=== PATIENT | male | born 1945 | race Caucasian/White ===

== ENCOUNTER 2017-09-01 11:12 | Emergency (ER) | payer MEDICARE ==
[2017-09-01] MEDS ORDERED: IBUPROFEN 600 MG TAB PO STA (11:53)
--- NOTE | 2017-09-01 12:40 | XR ---
EXAMINATION TYPE: XR foot limited LT , 2 VIEWS DATE OF EXAM ORDERED: 09/01/2017 HISTORY: Pain. COMPARISON: None. FINDINGS: There are mild degenerative changes in the left first MTP joint. No fracture or dislocatio n is seen. There is a hammertoe deformity of the left second digit. IMPRESSION: 1. NO ACUTE OSSEOUS LESION. 2. MILD DEGENERATIVE CHANGE.
--- NOTE | 2017-09-01 12:58 | ED ---
General Adult HPI - General Chief complaint: Extremity Problem,Nontraumatic Stated complaint: LEFT HEEL PAIN Time Seen by Provider: 09/01/17 11:44 Source: patient, family, RN notes reviewed Mode of arrival: wheelchair Limitations: no limitations - History of Present Illness Initial comments: Patient 71-year-old male presenting today with a chief complaint of some pain to the back of the left heel. Patient denies any injury or trauma. States woke up the morning and noticed that it was tender to touch. States is hurts when he tries she was on and ambulate. Patient doesn't that it's worse with dorsiflexion. He denies any other complaints or associated symptoms. Patient denies any recent fever, chills, shortness of breath, chest pain, back pain, abdominal pain, nausea or vomiting, numbness or tingling, headaches or visual changes, or any other complaints. - Related Data Home Medications Medication Instructions Recorded Confirmed Cholecalciferol [Vitamin D3] 1,000 unit PO DAILY 09/01/17 09/01/17 Lisinopril-Hctz 20-25 mg 1 tab PO DAILY 09/01/17 09/01/17 [Zestoretic 20-25] Simvastatin [Zocor] 40 mg PO DAILY 09/01/17 09/01/17 Previous Rx's Medication Instructions Recorded predniSONE 20 mg PO BID 5 Days tab 09/01/17 Allergies Allergy/AdvReac Type Severity Reaction Status Date / Time No Known Allergies Allergy Verified 09/01/17 11:58 Review of Systems ROS Statement: Those systems with pertinent positive or pertinent negative responses have been documented in the HPI. ROS Other: All systems not noted in ROS Statement are negative. Past Medical History Past Medical History: Hyperlipidemia, Hypertension History of Any Multi-Drug Resistant Organisms: None Reported Past Surgical History: No Surgical Hx Reported Past Psychological History: No Psychological Hx Reported Smoking Status: Never smoker Past Alcohol Use History: None Reported Past Drug Use History: Marijuana General Exam - General Exam Comments Initial Comments: General: The patient is awake and alert, in no distress, and does not appear acutely ill. Neck: The neck is supple, there is no tenderness or JVD. Cardiovascular: There is a regular rate and rhythm. No murmur, rub or gallop is appreciated. Respiratory: Lungs are clear to auscultation, respirations are non-labored, breath sounds are equal. No wheezes, stridor, rales, or rhonchi. Musculoskeletal: Patient has full range motion. Sensations are intact. Pulses are equal bilaterally 2+. Patient does have tenderness to the posterior heel. There is some local redness. Negative Mascorro's test. Worse with dorsiflexion. Neurological: A&O x 3. CN II-XII intact, There are no obvious motor or sensory deficits. Coordination appears grossly intact. Speech is normal. Skin: Skin is warm and dry and no rashes or lesions are noted. Psychiatric: Normal mood and affect. Limitations: no limitations Course Vital Signs 09/01/17 11:29 Temperature 97.4 F L Pulse Rate 62 Respiratory 20 Rate Blood Pressure 131/74 O2 Sat by Pulse 95 Oximetry Medical Decision Making - Medical Decision Making Patient's x-rays negative. His findings are consistent with a information of the tendon. He'll be continued on steroids for inflammation. Patient does admit to improvement after ibuprofen here the emergency room. Is advised follow -up family doctor return if any symptoms increase worsen. Disposition Clinical Impression: Tendinitis of ankle or foot Disposition: HOME SELF-CARE Condition: Good Instructions: Tendinitis (ED) Additional Instructions: Please use medication as discussed. Please follow-up with family doctor in the next 2 days of symptoms have not improved. Please return to emergency room if the symptoms increase or worsen or for any other concerns. Prescriptions: predniSONE 20 mg PO BID 5 Days tab Referrals: None,Stated [Primary Care Provider] - 1-2 days Amanda White MD [STAFF PHYSICIAN] - 1-2 days Time of Disposition: 12:56
[2017-09-01 13:09] VITALS: BP 132/84; PULSE 64; RESP 18; TEMP 97.7
== END 2017-09-01 13:08 | disposition home or self-care (01) ==
LOC: EC 11:12
DX: M77.9 Enthesopathy, unspecified (principal); E78.5 Hyperlipidemia, unspecified; I10 Essential (primary) hypertension; Z79.899 Other long term (current) drug therapy
CPT/HCPCS: 99283

== ENCOUNTER → 2017-09-23 | Outpatient (CLI) | payer MEDICARE ==
[2017-09-23 09:49] LABS: ALT 25 U/L (21-72); AST 18 U/L (17-59); Albumin 3.9 g/dL (3.5-5.0); Alkaline Phosphatase 52 U/L (38-126); Anion Gap 12 mmol/L; Blood Urea Nitrogen 18 mg/dL (9-20); Calcium 9.3 mg/dL (8.4-10.2); Carbon Dioxide 28 mmol/L (22-30); Chloride 104 mmol/L (98-107); Cholesterol 157 mg/dL (<200); Glucose 109 mg/dL (74-99); HDL Cholesterol 36 mg/dL (40-60); LDL Cholesterol,Calculated 87 mg/dL (0-99); Potassium 4.2 mmol/L (3.5-5.1); Sodium 144 mmol/L (137-145); Total Bilirubin 0.7 mg/dL (0.2-1.3); Total Protein 6.5 g/dL (6.3-8.2); Triglycerides 172 mg/dL (<150)
[2017-09-23 09:51] LABS: HCT 47.8 % (39.0-53.0); HGB 15.5 gm/dL (13.0-17.5); MCH 28.2 pg (25.0-35.0); MCHC 32.5 g/dL (31.0-37.0); MCV 86.9 fL (80.0-100.0); Mean Platelet Volume 6.9; Platelet Count 242 k/uL (150-450); RDW 13.3 % (11.5-15.5); WBC 6.8 k/uL (3.8-10.6)
[2017-09-23 10:19] LABS: Appearance,Urine Clear (Clear); Bilirubin,Urine Negative (Negative); Blood,Urine Negative (Negative); Color,Urine Yellow; Glucose,Urine (UA) Negative (Negative); Ketones,Urine Negative (Negative); Leukocyte Esterase,Urine Negative (Negative); Nitrite,Urine Negative (Negative); PH, Urine 6.5 (5.0-8.0); Prostate Specific Antigen 0.62 ng/mL (0.00-4.00); Protein,Urine Negative (Negative); Specific Gravity,Urine 1.016 (1.001-1.035); Urobilinogen,Urine <2.0 mg/dL (<2.0)
[2017-09-23 17:49] LABS: Hemoglobin A1C 5.9 % (4.0-6.0)
== END | disposition home or self-care (01) ==
LOC: LABWHC1 09:09
PROVIDERS: ATTEND Internal Medicine Cardiovascular Disease
DX: E78.5 Hyperlipidemia, unspecified (principal); I10 Essential (primary) hypertension; E88.81 Metabolic syndrome and other insulin resistance; E55.9 Vitamin D deficiency, unspecified; Z12.5 Encounter for screening for malignant neoplasm of prostate
CPT/HCPCS: 36415; 80053; 80061; 81003; 83036; 84153; 84443; 85027

== ENCOUNTER → 2019-01-09 | Outpatient (CLI) | payer MEDICARE ==
[2019-01-09 10:11] LABS: Appearance,Urine Clear (Clear); Bilirubin,Urine Negative (Negative); Blood,Urine Negative (Negative); Color,Urine Yellow; Glucose,Urine (UA) Negative (Negative); Ketones,Urine Negative (Negative); Leukocyte Esterase,Urine Negative (Negative); Nitrite,Urine Negative (Negative); Protein,Urine Negative (Negative); Specific Gravity,Urine 1.021 (1.001-1.035); Urobilinogen,Urine <2.0 mg/dL (<2.0)
[2019-01-09 10:17] LABS: HCT 48.4 % (39.0-53.0); HGB 15.7 gm/dL (13.0-17.5); MCH 28.7 pg (25.0-35.0); MCHC 32.4 g/dL (31.0-37.0); MCV 88.6 fL (80.0-100.0); Mean Platelet Volume 6.8; Platelet Count 246 k/uL (150-450); RBC 5.47 m/uL (4.30-5.90); RDW 13.5 % (11.5-15.5); WBC 7.6 k/uL (3.8-10.6)
[2019-01-09 17:13] LABS: African American GFR (CKD) 86.2 (60.0-200.0); Albumin 4.3 g/dL (3.80-4.90); Albumin/Globulin Ratio 2.53 (1.60-3.17); Calcium 9.5 mg/dL (8.7-10.3); Globulin 1.7 g/dL (1.6-3.3); LDL Cholesterol,Calculated 74.4 mg/dL (0.0-131.0); Potassium 4.2 mmol/L (3.5-5.5); Total Bilirubin 0.7 mg/dL (0.2-1.2); VLDL Calculation 29.6 mg/dL (5.00-40.00)
[2019-01-09 18:47] LABS: Hemoglobin A1C 6.1 % (4.0-6.0)
== END | disposition home or self-care (01) ==
LOC: LABWHC1 09:09
PROVIDERS: ATTEND Internal Medicine Cardiovascular Disease
DX: I10 Essential (primary) hypertension (principal); E03.9 Hypothyroidism, unspecified; R73.9 Hyperglycemia, unspecified; N40.0 Benign prostatic hyperplasia without lower urinary tract symptoms
CPT/HCPCS: 36415; 80053; 80061; 81003; 83036; 84153; 84443; 85027

== ENCOUNTER → 2020-01-20 | Outpatient (CLI) | payer MEDICARE ==
[2020-01-20 12:24] LABS: HCT 48.9 % (39.0-53.0); HGB 15.5 gm/dL (13.0-17.5); MCH 28.8 pg (25.0-35.0); MCHC 31.8 g/dL (31.0-37.0); MCV 90.5 fL (80.0-100.0); Mean Platelet Volume 7.2; Platelet Count 251 k/uL (150-450); RDW 13.3 % (11.5-15.5); WBC 8.8 k/uL (3.8-10.6)
[2020-01-20 13:32] LABS: Appearance,Urine Clear (Clear); Bilirubin,Urine Negative (Negative); Blood,Urine Negative (Negative); Color,Urine Light Yellow; Glucose,Urine (UA) Negative (Negative); Ketones,Urine Negative (Negative); Leukocyte Esterase,Urine Negative (Negative); Nitrite,Urine Negative (Negative); PH, Urine 6.5 (5.0-8.0); Protein,Urine Negative (Negative); Specific Gravity,Urine 1.017 (1.001-1.035); Urobilinogen,Urine <2.0 mg/dL (<2.0)
[2020-01-20 19:53] LABS: African American GFR (CKD) 85.6 (60.0-200.0); Albumin 4.3 g/dL (3.80-4.90); Albumin/Globulin Ratio 1.95 (1.60-3.17); Anion Gap 9.8 mmol/L (4.00-12.00); Calcium 9.9 mg/dL (8.7-10.3); Carbon Dioxide 29.2 mmol/L (21.6-31.8); Chol/HDL Ratio 3.86; Globulin 2.2 g/dL (1.6-3.3); Non-African American GFR(CKD) 73.8 (60.0-200.0); Potassium 4.5 mmol/L (3.5-5.5); Total Bilirubin 0.9 mg/dL (0.2-1.2); Total Protein 6.5 g/dL (6.2-8.2)
[2020-01-20 20:09] LABS: PSA Annual Screen 0.4 ng/mL (0.0-4.0)
== END | disposition home or self-care (01) ==
LOC: LABWHC1 10:23
PROVIDERS: ATTEND Internal Medicine Cardiovascular Disease
DX: Z00.00 Encounter for general adult medical examination without abnormal findings (principal); Z12.5 Encounter for screening for malignant neoplasm of prostate; I10 Essential (primary) hypertension; E78.5 Hyperlipidemia, unspecified; E66.9 Obesity, unspecified; E55.9 Vitamin D deficiency, unspecified
CPT/HCPCS: 80061; 80053; 84443; 85027; 81003; 36415; G0103

== ENCOUNTER → 2020-03-25 | Outpatient (CLI) | payer MEDICARE | END | disposition home or self-care (01) | LOC: LABWHC1 14:04 | PROVIDERS: ATTEND Family Medicine | DX: R53.83 Other fatigue (principal) | CPT/HCPCS: U0003; C9803 ==

== ENCOUNTER → 2022-03-08 | Outpatient (CLI) | payer MEDICARE ==
--- NOTE | 2022-03-08 14:10 | US ---
EXAMINATION TYPE: US axilla LT DATE OF EXAM: 03/08/2022 COMPARISON: NONE CLINICAL HISTORY: 76-year-old male N63.32 LUMP IN AXILLARY TAIL OF THE LEFT BREAST. Palpable lump lef t axilla x 1 year TECHNIQUE: Targeted ultrasound examination left axilla at the patient's palpable site. FINDINGS: Building Inspector notes: Left axilla: 1.7 x 1.1 x 2.6cm lymph node seen at patient's palpable area. Uniform , smooth and nonthickened cortex. IMPRESSION: Borderline to mildly enlarged lymph node measuring 1.7 cm short axis at the patient's left axillary p alpable site. This shows no abnormal cortical thickening. Likely reactive/post inflammatory etiology. Recommend clinical follow-up. A 2-3 month follow-up ultrasound can also be performed.
== END | disposition home or self-care (01) ==
LOC: RADUSWWP 10:06
PROVIDERS: ATTEND Family Medicine
DX: N63.32 Unspecified lump in axillary tail of the left breast (principal)

== ENCOUNTER 2023-09-02 14:49 | Inpatient (IN) | payer MEDICARE ==
--- NOTE | 2023-09-02 15:11 | ED ---
General Adult HPI - General Chief complaint: Neuro Symptoms/Deficit Stated complaint: Dizziness Source: patient Mode of arrival: ambulatory Limitations: no limitations - History of Present Illness Initial comments: 77-year-old male who presents emergency department from his eye doctor's office. Patient reports that he had sudden onset of visual disturbance at 730 last night. He felt like he lost vision completely in his left eye and had some fuzziness to his right eye. States that over the course of the day his eyesight has improved but he continues to have inability to see the periphery of the left side. He went to see his eye doctor today. Studies were performed and it was indicated to the patient that they were concerned he had a stroke. He sent the patient into the hospital for further evaluation here. He continues to have hemianopsia. NIH is 2. No history of stroke. Denies any headaches. No facial droop. No speech changes. Denies any weakness in his extremities. No other alleviating, precipitating or modifying factors - Related Data Home Medications Medication Instructions Recorded Confirmed Calcium Carbonate [Calcium] 600 mg PO DAILY 09/02/23 09/02/23 Cholecalciferol [Vitamin D3 (25 25 mcg PO DAILY 09/02/23 09/02/23 Mcg = 1000 Iu)] Previous Rx's Medication Instructions Recorded Aspirin 325 mg PO DAILY #30 tab 09/04/23 Atorvastatin [Lipitor] 40 mg PO DAILY #30 tab 09/04/23 Clopidogrel [Plavix] 75 mg PO DAILY #21 tab 09/04/23 Losartan [Cozaar] 25 mg PO DAILY #30 tab 09/04/23 Metoprolol Tartrate [Lopressor] 12.5 mg PO BID #60 tab 09/04/23 Allergies Allergy/AdvReac Type Severity Reaction Status Date / Time No Known Allergies Allergy Verified 09/02/23 15:31 Review of Systems ROS Statement: Those systems with pertinent positive or pertinent negative responses have been documented in the HPI. ROS Other: All systems not noted in ROS Statement are negative. Past Medical History Past Medical History: Hyperlipidemia, Hypertension History of Any Multi-Drug Resistant Organisms: None Reported Past Surgical History: No Surgical Hx Reported Past Psychological History: No Psychological Hx Reported Smoking Status: Never smoker Past Alcohol Use History: None Reported Past Drug Use History: Marijuana General Exam Limitations: no limitations General appearance: alert, in no apparent distress Head exam: Present: atraumatic, normocephalic, normal inspection Eye exam: Present: normal appearance, PERRL, EOMI. Absent: scleral icterus, conjunctival injection, periorbital swelling ENT exam: Present: normal exam, mucous membranes moist Neck exam: Present: normal inspection. Absent: tenderness, meningismus, lymphadenopathy Respiratory exam: Present: normal lung sounds bilaterally. Absent: respiratory distress, wheezes, rales, rhonchi, stridor Cardiovascular Exam: Present: regular rate, normal rhythm, normal heart sounds. Absent: systolic murmur, diastolic murmur, rubs, gallop, clicks GI/Abdominal exam: Present: soft, normal bowel sounds. Absent: distended, tenderness, guarding, rebound, rigid Extremities exam: Present: normal inspection, full ROM, normal capillary refill. Absent: tenderness, pedal edema, joint swelling, calf tenderness Back exam: Present: normal inspection Neurological exam: Present: alert, oriented X3, other (patient has left sided hemianopsia with loss of left sided vision) Psychiatric exam: Present: normal affect, normal mood Skin exam: Present: warm, dry, intact, normal color. Absent: rash Course Vital Signs 09/02/23 09/02/23 09/02/23 14:50 15:13 15:30 Temperature 98.6 F Pulse Rate 34 L 58 L Respiratory 20 22 17 Rate Blood Pressure 174/84 168/83 143/70 O2 Sat by Pulse 99 95 95 Oximetry 09/02/23 09/02/23 09/02/23 15:40 15:41 15:56 Temperature Pulse Rate 55 L 59 L Respiratory 19 19 Rate Blood Pressure 152/91 151/82 147/82 O2 Sat by Pulse 98 98 Oximetry 09/02/23 09/02/23 09/02/23 16:00 16:10 16:11 Temperature Pulse Rate 52 L 53 L 57 L Respiratory 22 19 18 Rate Blood Pressure 151/82 147/82 141/81 O2 Sat by Pulse 97 97 97 Oximetry 09/02/23 09/02/23 09/02/23 16:26 16:30 16:40 Temperature Pulse Rate 60 56 L 51 L Respiratory 19 19 13 Rate Blood Pressure 145/73 141/81 145/73 O2 Sat by Pulse 98 97 96 Oximetry 09/02/23 09/02/23 09/02/23 16:41 16:56 17:00 Temperature Pulse Rate 54 L 61 62 Respiratory 18 17 17 Rate Blood Pressure 150/91 157/91 150/91 O2 Sat by Pulse 97 97 97 Oximetry 09/02/23 09/02/23 09/02/23 17:12 18:00 20:00 Temperature 97.0 F L Pulse Rate 70 54 L 59 L Respiratory 17 14 18 Rate Blood Pressure 145/81 149/95 O2 Sat by Pulse 99 98 97 Oximetry 09/02/23 09/02/23 09/02/23 20:26 20:56 21:26 Temperature Pulse Rate 53 L 53 L 55 L Respiratory 16 18 18 Rate Blood Pressure 144/81 146/96 124/82 O2 Sat by Pulse 97 97 97 Oximetry 09/02/23 09/02/23 09/02/23 21:56 22:08 22:26 Temperature Pulse Rate 56 L 58 L 71 Respiratory 19 18 18 Rate Blood Pressure 95/66 118/74 118/74 O2 Sat by Pulse 97 95 97 Oximetry 09/02/23 09/02/23 09/03/23 22:56 23:56 00:48 Temperature Pulse Rate 54 L 60 52 L Respiratory 18 16 16 Rate Blood Pressure 121/78 112/70 104/74 O2 Sat by Pulse 98 94 L 91 L Oximetry 09/03/23 09/03/23 09/03/23 01:56 02:56 03:56 Temperature Pulse Rate 55 L 52 L 51 L Respiratory 18 18 16 Rate Blood Pressure 137/74 118/75 108/79 O2 Sat by Pulse 95 92 L 93 L Oximetry 09/03/23 09/03/23 09/03/23 04:56 08:00 11:10 Temperature Pulse Rate 59 L 59 L 61 Respiratory 16 18 18 Rate Blood Pressure 93/70 125/89 143/95 O2 Sat by Pulse 92 L 95 96 Oximetry 09/03/23 09/03/23 09/03/23 11:56 12:56 13:56 Temperature Pulse Rate 53 L 56 L 56 L Respiratory 14 14 16 Rate Blood Pressure 141/71 145/81 141/86 O2 Sat by Pulse 97 96 95 Oximetry 09/03/23 09/03/23 09/03/23 14:56 16:36 18:20 Temperature Pulse Rate 73 56 L 54 L Respiratory 16 14 14 Rate Blood Pressure 151/82 122/80 134/95 O2 Sat by Pulse 95 96 95 Oximetry 09/03/23 09/03/23 18:56 21:23 Temperature Pulse Rate 54 L 64 Respiratory 14 19 Rate Blood Pressure 148/88 116/81 O2 Sat by Pulse 95 96 Oximetry Medical Decision Making - Medical Decision Making Was pt. sent in by a medical professional or institution (, PA, SALES AGENT [employer], urgent care, hospital, or fdc...) When possible be specific @ -Patient was sent in by his eye doctor Did you speak to anyone other than the patient for history (EMS, parent, family, police, friend...)? What history was obtained from this source @ -No Did you review nursing and triage notes (agree or disagree)? Why? @ -I reviewed and agree with nursing and triage notes Were old charts reviewed (outside hosp., previous admission, EMS record, old EKG, old radiological studies, urgent care reports/EKG's, fdc records)? Report findings @ -I reviewed paperwork that the patient brought from his eye doctor office Differential Diagnosis (chest pain, altered mental status, abdominal pain women, abdominal pain men, vaginal bleeding, weakness, fever, dyspnea, syncope, headache, dizziness, GI bleed, back pain, seizure, CVA, palpatations, mental health, musculoskeletal)? @ -Differential CVA Ischemic stroke, hemorrhagic stroke, brain tumor, atypical migraine, Wernicke's encephalopathy, seizure, multiple sclerosis, meningitis, encephalitis, hypoglycemia, Guillain-Isidro, electrolytes disturbance, myasthenia gravis.... This is not meant to be an all-inclusive list EKG interpreted by me (3pts min.). @ -Yes and demonstrates sinus rhythm with frequent PVCs and a bigeminy pattern. Rate of 65. CA interval 194. QRS 101. QTc of 38. No acute ST segment elevation or depression X-rays interpreted by me (1pt min.). @ -Yes and demonstrates no acute process CT interpreted by me (1pt min.). @ -Yes and demonstrates no acute process U/S interpreted by me (1pt. min.). @ -None done What testing was considered but not performed or refused? (CT, X-rays, U/S, labs)? Why? @ -None What meds were considered but not given or refused? Why? @ -Tenecteplase was considered however patient is outside the window Did you discuss the management of the patient with other professionals (professionals i.e. , PA, SAL[employer], lab, RT, psych nurse, certified social workers in health care, custody officer, teacher, admissions officer, welfare case worker)? Give summary @ -Spoke with Dr. Heart for admission Was smoking cessation discussed for >3mins.? @ -No Was critical care preformed (if so, how long)? @ -Yes, 35 minutes for stroke activation and evaluation Were there social determinants of health that impacted care today? How? (Homelessness, low income, unemployed, alcoholism, drug addiction, transportation, low edu. Level, literacy, decrease access to med. care, residential, rehab)? @ -No Was there de-escalation of care discussed even if they declined (Discuss DNR or withdrawal of care, Hospice)? DNR status @ -No What co-morbidities impacted this encounter? (DM, HTN, Smoking, COPD, CAD, Cancer, CVA, ARF, Chemo, Hep., AIDS, mental health diagnosis, sleep apnea, morbid obesity)? @ -None Was patient admitted / discharged? Hospital course, mention meds given and route, prescriptions, significant lab abnormalities, going to OR and other pertinent info. @ -Upon arrival patient was placed into trauma 2. Thorough history and physical exam was performed. Patient does score a 2 on the NIH scale. As it is within 24 hours I did activate code stroke. Patient is sent for CT of his head which demonstrates no acute findings. There is high concern for CVA at this time and therefore I did recommend admission for neurology consultation and MRI. Patient was agreeable to this. Spoke with Dr. Heart who agreed to admit the patient Undiagnosed new problem with uncertain prognosis? @ -Yes Drug Therapy requiring intensive monitoring for toxicity (Heparin, Nitro, Insulin, Cardizem)? @ -No Were any procedures done? @ -No Diagnosis/symptom? @ -Acute hemianopsia, suspected CVA Acute, or Chronic, or Acute on Chronic? @ -Acute Uncomplicated (without systemic symptoms) or Complicated (systemic symptoms)? @ -Complicated Side effects of treatment? @ -No Exacerbation, Progression, or Severe Exacerbation? @ -No Poses a threat to life or bodily function? How? (Chest pain, [place], [place], pneumonia, PE, COPD, DKA, ARF, appy, cholecystitis, CVA, Diverticulitis, Homicidal, Suicidal, threat to staff... and all critical care pts) @ -Yes it appears the patient has had a stroke - Lab Data Result diagrams: 09/04/23 07:40 09/04/23 07:40 Lab Results 09/02/23 09/02/23 09/02/23 Range/Units 15:13 15:14 15:14 WBC 10.3 (3.8-10.6) k/uL RBC 5.43 (4.30-5.90) m/uL Hgb 16.1 (13.0-17.5) gm/dL Hct 49.9 (39.0-53.0) % MCV 91.8 (80.0-100.0) fL MCH 29.6 (25.0-35.0) pg MCHC 32.3 (31.0-37.0) g/dL RDW 13.0 (11.5-15.5) % Plt Count 205 (150-450) k/uL MPV 8.0 Neutrophils % 62 % Lymphocytes % 22 % Monocytes % 5 % Eosinophils % 10 % Basophils % 1 % Neutrophils # 6.3 (1.3-7.7) k/uL Lymphocytes # 2.2 (1.0-4.8) k/uL Monocytes # 0.5 (0-1.0) k/uL Eosinophils # 1.0 H (0-0.7) k/uL Basophils # 0.1 (0-0.2) k/uL PT 11.2 (10.0-12.5) sec INR 1.0 (<1.2) APTT 24.8 (22.0-30.0) sec Sodium (137-145) mmol/L Potassium (3.5-5.1) mmol/L Chloride (98-107) mmol/L Carbon Dioxide (22-30) mmol/L Anion Gap mmol/L BUN (9-20) mg/dL Creatinine (0.66-1.25) mg/dL Est GFR (CKD-EPI)AfAm (>60 ml/min/1.73 sqM) Est GFR (CKD-EPI)NonAf (>60 ml/min/1.73 sqM) Glucose (74-99) mg/dL POC Glucose (mg/dL) 87 (70-110) mg/dL POC Glu Hedis Analyst ID Sera Fonseca Calcium (8.4-10.2) mg/dL Total Bilirubin (0.2-1.3) mg/dL AST (17-59) U/L ALT (4-49) U/L Alkaline Phosphatase (38-126) U/L Creatine Kinase (55-170) U/L Troponin I (0.000-0.034) ng/mL Total Protein (6.3-8.2) g/dL Albumin (3.5-5.0) g/dL 09/02/23 09/02/23 Range/Units 15:14 15:14 WBC (3.8-10.6) k/uL RBC (4.30-5.90) m/uL Hgb (13.0-17.5) gm/dL Hct (39.0-53.0) % MCV (80.0-100.0) fL MCH (25.0-35.0) pg MCHC (31.0-37.0) g/dL RDW (11.5-15.5) % Plt Count (150-450) k/uL MPV Neutrophils % % Lymphocytes % % Monocytes % % Eosinophils % % Basophils % % Neutrophils # (1.3-7.7) k/uL Lymphocytes # (1.0-4.8) k/uL Monocytes # (0-1.0) k/uL Eosinophils # (0-0.7) k/uL Basophils # (0-0.2) k/uL PT (10.0-12.5) sec INR (<1.2) APTT (22.0-30.0) sec Sodium 141 (137-145) mmol/L Potassium 4.3 (3.5-5.1) mmol/L Chloride 105 (98-107) mmol/L Carbon Dioxide 28 (22-30) mmol/L Anion Gap 8 mmol/L BUN 20 (9-20) mg/dL Creatinine 0.98 (0.66-1.25) mg/dL Est GFR (CKD-EPI)AfAm 86 (>60 ml/min/1.73 sqM) Est GFR (CKD-EPI)NonAf 75 (>60 ml/min/1.73 sqM) Glucose 92 (74-99) mg/dL POC Glucose (mg/dL) (70-110) mg/dL POC Glu Hedis Analyst ID Calcium 9.2 (8.4-10.2) mg/dL Total Bilirubin 0.8 (0.2-1.3) mg/dL AST 27 (17-59) U/L ALT 18 (4-49) U/L Alkaline Phosphatase 62 (38-126) U/L Creatine Kinase 60 (55-170) U/L Troponin I <0.012 (0.000-0.034) ng/mL Total Protein 7.1 (6.3-8.2) g/dL Albumin 4.2 (3.5-5.0) g/dL Disposition Clinical Impression: Hemianopsia, Cerebrovascular accident (CVA) Disposition: ADMITTED IP TO THIS [facility] Condition: Stable Is patient prescribed a controlled substance at d/c from ED?: No Time of Disposition: 16:32 Decision to Admit Reason: Admit from EC Decision Date: 09/02/23 Decision Time: 16:32
[2023-09-02 15:14] LABS: Glucose,Whole Blood 87 mg/dL (70-110)
[2023-09-02 15:27] LABS: Basophils # (A) 0.1 k/uL (0-0.2); Basophils % (A) 1 %; Eosinophils % (A) 10 %; HCT 49.9 % (39.0-53.0); HGB 16.1 gm/dL (13.0-17.5); Lymphocytes # (A) 2.2 k/uL (1.0-4.8); Lymphocytes % (A) 22 %; MCH 29.6 pg (25.0-35.0); MCHC 32.3 g/dL (31.0-37.0); MCV 91.8 fL (80.0-100.0); Monocytes # (A) 0.5 k/uL (0-1.0); Monocytes % (A) 5 %; Neutrophils # (A) 6.3 k/uL (1.3-7.7); Neutrophils % (A) 62 %; Platelet Count 205 k/uL (150-450); RBC 5.43 m/uL (4.30-5.90); WBC 10.3 k/uL (3.8-10.6)
[2023-09-02 15:38] LABS: Partial Thromboplastin Time 24.8 sec (22.0-30.0); Prothrombin Time 11.2 sec (10.0-12.5)
[2023-09-02 15:40] LABS: ALT 18 U/L (4-49); AST 27 U/L (17-59); African American GFR (CKD) 86 (>60 ml/min/1.73 sqM); Albumin 4.2 g/dL (3.5-5.0); Alkaline Phosphatase 62 U/L (38-126); Anion Gap 8 mmol/L; Blood Urea Nitrogen 20 mg/dL (9-20); Calcium 9.2 mg/dL (8.4-10.2); Carbon Dioxide 28 mmol/L (22-30); Chloride 105 mmol/L (98-107); Creatine Kinase 60 U/L (55-170); Glucose 92 mg/dL (74-99); Non-African American GFR(CKD) 75 (>60 ml/min/1.73 sqM); Potassium 4.3 mmol/L (3.5-5.1); Sodium 141 mmol/L (137-145); Total Bilirubin 0.8 mg/dL (0.2-1.3); Total Protein 7.1 g/dL (6.3-8.2)
--- NOTE | 2023-09-02 15:43 | XR ---
EXAMINATION TYPE: XR chest 2V DATE OF EXAM: 09/02/2023 COMPARISON: NONE TECHNIQUE: PA and lateral views submitted. HISTORY: Altered mental status FINDINGS: The lungs are clear and there is no pneumothorax, pleural effusion, or focal pneumonia. Osseous stru ctures demonstrate hypertrophic and degenerative changes of the spine. Underlying emphysematous gillis es with mild cardiomegaly and ectasia of the aorta. Partial eventration of the right hemidiaphragm. IMPRESSION: 1. No acute process.
--- NOTE | 2023-09-02 16:08 | CT ---
EXAMINATION TYPE: CT brain wo con DATE OF EXAM: 09/02/2023 COMPARISON: None HISTORY: cva CT DLP: 1094 mGycm Automated exposure control for dose reduction was used. FINDINGS: The ventricles, basal cisterns and sulci over convexities are within normal limits for the patient's age. There is mild decreased density in the white matter consistent with mild chronic ischemic white matte r demyelination. There is no mass effect or shift of the midline structures. There is no acute intra or extra-axial hemorrhage. The posterior fossa is grossly normal. The intraorbital contents appear normal symmetric. Visualized paranasal sinuses and mastoid air cells are well aerated. Calvarium is intact. IMPRESSION: No acute bleed or mass effect. IMPRESSION:
--- NOTE | 2023-09-02 16:12 | CT ---
EXAMINATION TYPE: CT angio head neck DATE OF EXAM: 09/02/2023 HISTORY: cva COMPARISON: CT DLP: 531.1 mGycm. Automated Exposure Control for Dose Reduction was Utilized. TECHNIQUE: CTA scan of the head and neck is performed with IV Contrast, patient injected with 65ml m L of Isovue 370, axial images are obtained, coronal and sagittal reformatted images are reviewed. 3D reconstructed images are created on an independent workstation and reviewed. 3-D postprocessing was p erformed. MIPS images were generated and reviewed. FINDINGS: The brachiocephalic origins are widely patent without significant stenosis. There is no significant stenosis within the common or internal carotid arteries within the neck. Ther e is eccentric plaque formation left carotid bifurcation but no significant stenosis secondary to the plaque. The vertebral arteries are patent. Intracranially, there is no significant stenosis, segmental occlusion, sizable aneurysm sac or vascul ar malformation. IMPRESSION: No significant arterial occlusive disease in the head or neck.
[2023-09-02] MEDS ORDERED: NALOXONE 0.4 MG/ML 1 ML VIAL IV PRN (16:32)
[2023-09-02] MEDS: ATORVASTATIN 40 MG TAB PO SCH (16:55)
[2023-09-02] MEDS: ASPIRIN 325 MG TAB PO STA (16:55)
--- NOTE | 2023-09-03 05:38 | P.HPIM ---
History of Present Illness H&P Date: 09/02/23 Chief Complaint: Vision changes 77-year-old male with hypertension hyperlipidemia Patient coming in for evaluation of possible stroke. He reports that around 7:30 PM on Saturday he suddenly lost vision in his left eye was blind in the left eye for about 30 minutes then started improving with some limitation for left peripheral vision he went to an lead pharmacy technician today for evaluation was found to have acute left superior quadrantanopsia visual field. Patient was sent into the hospital for evaluation of possible stroke Patient otherwise denies any history of stroke denies any history of head injury he denies any associated headache denies any dizziness lightheadedness nausea vomiting or falls denies any other focal neurodeficits. Patient denies tobacco smoking illicit drugs or heavy alcohol review of systems Pertinent positives as noted in HPI. All other systems were reviewed and are negative on exam Constitutional: No acute distress, conversant, pleasant Eyes: Anicteric sclerae, moist conjunctiva, Pupils equal round reactive to light ENMT: NC/AT Oropharynx clear, no erythema, or exudates Neck: Supple, no masses, or JVD No carotid bruits No thyromegaly Lungs: Clear to auscultation Clear to percussion Normal respiratory effort, no accessory muscle use Cardiovascular: Heart regular in rate and rhythm, No murmurs, gallops, or rubs No peripheral edema Abdominal: Soft Nontender, no guarding, rebound or rigidity Abdomen moving with respiration Normoactive bowel sounds Extremities: No digital cyanosis No clubbing Pedal pulses intact and symmetrical Radial pulses intact and symmetrical No calf tenderness Psychiatric: Alert and oriented to person, place and time Neuro Muscles Strength 5/5 in all 4 extremities Sensation to light touch grossly present throughout Cranial nerves II-XII grossly intact with some left loss of peripheral vision on examination of cranial nerve II Finger-nose exam intact without dysmetria heel cornejo exams intact Past Medical History Past Medical History: Hyperlipidemia, Hypertension History of Any Multi-Drug Resistant Organisms: None Reported Past Surgical History: No Surgical Hx Reported Past Psychological History: No Psychological Hx Reported Smoking Status: Never smoker Past Alcohol Use History: None Reported Past Drug Use History: Marijuana Medications and Allergies Home Medications Medication Instructions Recorded Confirmed Type Simvastatin [Zocor] 40 mg PO DAILY 09/01/17 09/02/23 History Calcium Carbonate [Calcium] 600 mg PO DAILY 09/02/23 09/02/23 History Cholecalciferol [Vitamin D3 (25 25 mcg PO DAILY 09/02/23 09/02/23 History Mcg = 1000 Iu)] Losartan-Hctz 50-12.5 mg [Hyzaar 1 tab PO DAILY 09/02/23 09/02/23 History 50-12.5] Allergies Allergy/AdvReac Type Severity Reaction Status Date / Time No Known Allergies Allergy Verified 09/02/23 15:31 Physical Exam Vitals: Vital Signs Temp Pulse Resp BP Pulse Ox 09/02/23 22:26 71 18 118/74 97 09/02/23 22:08 58 L 18 118/74 95 09/02/23 21:56 56 L 19 95/66 97 09/02/23 21:26 55 L 18 124/82 97 09/02/23 20:56 53 L 18 146/96 97 09/02/23 20:26 53 L 16 144/81 97 09/02/23 20:00 97.0 F L 59 L 18 149/95 97 09/02/23 18:00 54 L 14 145/81 98 09/02/23 17:12 70 17 99 09/02/23 17:00 62 17 150/91 97 09/02/23 16:56 61 17 157/91 97 09/02/23 16:41 54 L 18 150/91 97 09/02/23 16:40 51 L 13 145/73 96 09/02/23 16:30 56 L 19 141/81 97 09/02/23 16:26 60 19 145/73 98 09/02/23 16:11 57 L 18 141/81 97 09/02/23 16:10 53 L 19 147/82 97 09/02/23 16:00 52 L 22 151/82 97 09/02/23 15:56 59 L 19 147/82 98 09/02/23 15:41 55 L 19 151/82 98 09/02/23 15:40 152/91 09/02/23 15:30 58 L 17 143/70 95 09/02/23 15:13 22 168/83 95 09/02/23 14:50 98.6 F 34 L 20 174/84 99 Intake and Output 09/02/23 09/02/23 09/03/23 14:59 22:59 06:59 Other: Weight 90.718 kg Results CBC & Chem 7: 09/02/23 15:14 09/02/23 15:14 Labs: Abnormal Lab Results - Last 24 Hours (Table) 09/02/23 Range/Units 15:14 Eosinophils # 1.0 H (0-0.7) k/uL Assessment and Plan Assessment: 77-year-old male with hypertension hyperlipidemia coming in with some vision limitations patient seen and lead pharmacy technician and was diagnosed with acute left superior quadrantanopsia on visual field exam I discussed case with ED doctor and accepted the admission for acute ischemic stroke with anticipated length of stay more than 2 midnights Acute left superior quadrant anopsia, suspected secondary to ischemic stroke CT of the brain no acute intracranial pathology or mass effect CT angio of the head and neckno significant arterial occlusion in the head and neck Fall precautions PT/OT eval Daily aspirin 81 mg Statin atorvastatin 40 mg nightly Check echocardiogram Neurology consult Patient was out of the therapeutic window for tPA due to duration of symptoms over 4 hours since onset Hypertension controlled Resume antihypertensive medications in the morning Blood work otherwise unremarkable White count 10 hemoglobin 16 Sodium 141 potassium 4.3 BUN 20 creatinine 0.98 Troponins negative Full code DVT prophylaxis heparin subcu 3 times daily
[2023-09-03] MEDS: ASPIRIN 325 MG TAB PO SCH (08:42)
[2023-09-03] MEDS: HEPARIN SODIUM,PORCINE 5,000 UNIT/ML 1 ML VIAL SQ SCH (08:42)
[2023-09-03] MEDS ORDERED: LOSARTAN-HCTZ 50-12.5 MG 1 EACH TAB PO SCH (09:00)
--- NOTE | 2023-09-03 11:12 | MR ---
EXAMINATION TYPE: MR brain wo con DATE OF EXAM: 09/03/2023 COMPARISON: 09/02/2023 CT HISTORY: Loss of peripheral vision TECHNIQUE: T1-weighted sagittal, T2, FLAIR, and diffusion axial, and T2 coronal coronal views of the brain are submitted. FINDINGS: There is a 2.9 cm area of diffusion restriction within the right occipital lobe compatible with acute ischemia. Mild degenerative change. Focal and diffuse areas of abnormal signal in the white matter are nonspeci fic but most typical of remote microvascular ischemia. A focal area of low attenuation involving the mariangel likely in the basis of tiny area of remote ischemia. Changes of chronic sinusitis with nasal septal deviation. Bilateral mild mastoiditis.. Craniocervical junction maintained. Sella turcica has a normal appearance. Report called to the patient's nurse Abida at 11:05 AM 09/03/2023. IMPRESSION: 1. Acute ischemia right occipital lobe with no significant mass effect. 2. Degenerative and diffuse nonspecific white matter findings most typical of remote microvascular is chemia. A [place] critical message alert has been initiated for Masha Heredia via the [employer] tical Results System on 09/03/2023 11:05 AM. This message alert has been sent to Masha Heredai via th e preferences provided by the clinician for the receipt of Radiology Critical Findings. Message ID [id number].
--- NOTE | 2023-09-03 11:32 | CA ---
Transthoracic Echo Report Name: Jerry Mari Age: 77 Gender: M : 1945 Exam Date: 09/03/2023 07:54 Exam Location: [facility] Ht (in): 61 Wt (lb): 200 Ordering Physician: Lesvia Wolff MD Attending/Referring Phys: [id number], Mariella [employer] Machine Operator Goldie Malikbarbie RDCS Procedure CPT: Indications: sroke Cardiac Hx: Technical Quality: Technically difficult study Contrast 1: Definity Total Dose (mL): 2 Contrast 2: Total Dose (mL): MEASUREMENTS (Male / Female) Normal Values 2D ECHO Aortic Root Diameter 3.5 cm LA Systolic Diameter LX 4.5 cm 3.0 - 4.0 / 2.7 - 3.8 cm LA Volume 92.4 cm??? 18 - 58 / 22 - 52 cm??? LA Volume Index 45.7 cm???/m??? 16 - 28 cm???/m??? DOPPLER AV Peak Velocity 139.4 cm/s AV Peak Gradient 7.8 mmHg AV Mean Velocity 112.3 cm/s AV Mean Gradient 5.4 mmHg AV Velocity Time Integral 33.7 cm LVOT Peak Velocity 86.6 cm/s LVOT Peak Gradient 3.0 mmHg LVOT Velocity Time Integral 21.7 cm MV Area PHT 2.5 cm??? Mitral E Point Velocity 66.9 cm/s Mitral A Point Velocity 77.5 cm/s Mitral E to A Ratio 0.9 MV Deceleration Time 302.6 ms TR Peak Velocity 238.4 cm/s TR Peak Gradient 22.7 mmHg FINDINGS Left Ventricle Left ventricular ejection fraction is estimated at 40-45 %. Normal left ventricular wall motion. No obvious regional wall motion abnormalities. Right Ventricle Normal right ventricular size. Right Atrium Normal right atrial size. Left Atrium Mildly increased left atrial diameter. Mitral Valve Trace to mild mitral regurgitation. Aortic Valve Aortic valve not well visualized. Tricuspid Valve Trace tricuspid regurgitation. Pulmonic Valve Pulmonic valve not well visualized. Pericardium No pericardial effusion. Aorta Normal size aortic root. CONCLUSIONS Limited study due to poor acoustic windows. Technically difficult study. Globally reduced LV systolic function. LVEF estimated at 40-45% No evidence of LV thrombus on contrast imaging No significant valvular dysfunction No pericardial effusion. Previewed by: Dr Beny Jensen (Electronically Signed) Final Date: 03 September 2023 11:31
[2023-09-03 11:33] LABS: LDL Cholesterol,Calculated 68.2 mg/dL (0.0-131.0); VLDL Calculation 17.74 mg/dL (5.00-40.00)
--- NOTE | 2023-09-03 14:30 | P.PN ---
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 On 08/31 he lost vision in his left eye for about 30 minutes which starting improving but continued to have some limitation in his peripheral vision. He therefore went to the hoop flaring machine operator helper on 09/01 and underwent testing and was found to have visual loss in the left superior quadrant and was sent to the hospital for possible stroke evaluation. On arrival to the ER he was hypertensive with a blood pressure of 174/84. He was noted to be bradycardic. Initial laboratory analysis was unremarkable. Initial chest x-ray demonstrated no acute process. CT head demonstrated no acute bleed or mass effect CTA of the head and neck demonstrated no significant arterial occlusive disease in the head or neck. He was given a dose of aspirin and was started on Lipitor. Arrangements were made for observation. Patient seen and examined at bedside. He continues to have visual loss on the left. He denies any weakness, numbness and tingling, difficulty with speech, difficulty with swallowing, or difficulty with thinking. He is worried about getting home to his animals. I discussed that his stroke can be a significant issue and that he should stay and have further testing. Patient is in agreement. Vital signs reviewed General: Nontoxic, no distress, appears at stated age Cardiovascular: S1S2 reg, no murmur Lungs: CTA bilateral, no rhonchi, no rales, no accessory muscle use Abdominal: Soft, nontender to palpation, no guarding Ext: No gross muscle atrophy, no edema b/l lower extremities, no contractures Neuro: CN II-XI grossly intact, no focal neuro deficits Psych: Alert, oriented, appropriate affect Assessment/Plan: Acute right occipital lobe CVA HTN HLD -CTA of the head and neck with no hemodynamic significant stenosis -Aspirin 325 mg daily, Lipitor 40 mg daily, Plavix 75 mg daily -Await neurology consultation -MRI brain ordered and reviewed -Lipid profile reviewed with LDL of 68. Await hemoglobin A1c. 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 Will not add any additional blood pressure medications today given acute CVA but could resume starting tomorrow. Of note patient's blood pressure has been in the 140s. Imaging: MRI brain: Acute ischemic right occipital lobe with no significant mass effect, degenerative and diffuse white matter findings most typical of remote microvascular ischemia Echocardiogram: Ejection fraction 40 to 45%, globally reduced left ventricular ejection fraction Data Review: Lipid profile as above DVT prophylaxis: Heparin Anticipated discharge date: pending clinical course Anticipated discharge place: pending clinical course This dictation was prepared using [employer] voice recognition software. Though every attempt is made to correct errors during dictation some may still exist. Objective - Vital Signs Vital signs: Vital Signs Temp 97.0 F L 09/02/23 20:00 Pulse 56 L 09/03/23 12:56 Resp 14 09/03/23 12:56 BP 145/81 09/03/23 12:56 Pulse Ox 96 09/03/23 12:56 FiO2 Intake & Output 09/02/23 09/03/23 09/03/23 18:59 06:59 18:59 Weight 90.718 kg - Labs CBC & Chem 7: 09/02/23 15:14 09/02/23 15:14 Labs: Abnormal Lab Results - Last 24 Hours (Table) 09/02/23 09/03/23 Range/Units 15:14 07:40 Eosinophils # 1.0 H (0-0.7) k/uL HDL Cholesterol 39.10 L (40.00-60.00) mg/dL
--- NOTE | 2023-09-03 14:32 | P.CNNES ---
History of Present Illness Consult date: 09/03/23 Requesting physician: Hannah Clarke Reason for Consult: Hemianopsia, suspected CVA History of Present Illness: Patient is a 77-year-old right-handed male with history of hypertension, hyperlipidemia, came to the hospital yesterday at 2:49 PM for acute onset of visual disturbance. Patient states that the day prior to arrival, on Saturday evening, he was walking to the kitchen when he suddenly developed visual disturbance, stating the left eye became completely black and the right eye has fragmented vision. He sat down in the chair. The symptoms were very bad for 10 minutes and slowly started improving, and he was able to see out of left eye but fragmented vision in the right eye vision further improved.. About an hour later, he the vision has almost come back to normal, although he still had slight problem with the peripheral vision, left more than right. He denies any slurred speech, facial droop, any focal numbness tingling or weakness. He stayed home. Next morning he saw his dishcloth folder Dr. Frank, who recommended him to go to the ER. At present, patient still has some peripheral visual issue, bilaterally, left more than right. Vital signs on arrival blood pressure 174/84, pulse rate 34, temperature 98.6. Blood test shows normal CBC, PT PTT, normal CMP, troponin, CK. EKG shows sinus rhythm with frequent ventricular premature complexes. Chest x-ray is normal. CT head reported normal. I personally reviewed CT head and appears there is area of slight hypodensity in the right occipital lobe. Rule out early ischemia. Patient has hypertension, hyperlipidemia, but denies diabetes. He is a non- smoker. Patient does not take any antiplatelet medication at home. Review of Systems Constitutional: Denies chills, Denies fever Eyes: left loss of vision (cleared), bilateral as per HPI, bilateral blurred vision Ears: deny: decreased hearing, ear discharge Ears, nose, mouth and throat: Reports headache, Denies sore throat Cardiovascular: Denies chest pain, Denies shortness of breath Respiratory: Denies cough, Denies excessive sputum Gastrointestinal: Denies abdominal pain, Denies diarrhea, Denies nausea, Denies vomiting Genitourinary: Reports urinary frequency, Denies dysuria, Denies incontinence Musculoskeletal: Denies low back pain, Denies neck pain Integumentary: Denies pruritus, Denies rash Neurological: Reports as per HPI Psychiatric: Denies anxiety, Denies depression Hematologic/Lymphatic: Denies easy bleeding, Denies easy bruising Past Medical History Past Medical History: Hyperlipidemia, Hypertension History of Any Multi-Drug Resistant Organisms: None Reported Past Surgical History: No Surgical Hx Reported Past Psychological History: No Psychological Hx Reported Smoking Status: Never smoker Past Alcohol Use History: None Reported Past Drug Use History: Marijuana Medications and Allergies Home Medications Medication Instructions Recorded Confirmed Type Simvastatin [Zocor] 40 mg PO DAILY 09/01/17 09/02/23 History Calcium Carbonate [Calcium] 600 mg PO DAILY 09/02/23 09/02/23 History Cholecalciferol [Vitamin D3 (25 25 mcg PO DAILY 09/02/23 09/02/23 History Mcg = 1000 Iu)] Losartan-Hctz 50-12.5 mg [Hyzaar 1 tab PO DAILY 09/02/23 09/02/23 History 50-12.5] Allergies Allergy/AdvReac Type Severity Reaction Status Date / Time No Known Allergies Allergy Verified 09/02/23 15:31 Physical Examination - Vital Signs Vital Signs: Vital Signs Temp Pulse Resp BP Pulse Ox 09/03/23 11:10 61 18 143/95 96 09/03/23 08:00 59 L 18 125/89 95 09/03/23 04:56 59 L 16 93/70 92 L 09/03/23 03:56 51 L 16 108/79 93 L 09/03/23 02:56 52 L 18 118/75 92 L 09/03/23 01:56 55 L 18 137/74 95 09/03/23 00:48 52 L 16 104/74 91 L 09/02/23 23:56 60 16 112/70 94 L 09/02/23 22:56 54 L 18 121/78 98 09/02/23 22:26 71 18 118/74 97 09/02/23 22:08 58 L 18 118/74 95 09/02/23 21:56 56 L 19 95/66 97 09/02/23 21:26 55 L 18 124/82 97 09/02/23 20:56 53 L 18 146/96 97 09/02/23 20:26 53 L 16 144/81 97 09/02/23 20:00 97.0 F L 59 L 18 149/95 97 09/02/23 18:00 54 L 14 145/81 98 09/02/23 17:12 70 17 99 09/02/23 17:00 62 17 150/91 97 09/02/23 16:56 61 17 157/91 97 09/02/23 16:41 54 L 18 150/91 97 09/02/23 16:40 51 L 13 145/73 96 09/02/23 16:30 56 L 19 141/81 97 09/02/23 16:26 60 19 145/73 98 09/02/23 16:11 57 L 18 141/81 97 09/02/23 16:10 53 L 19 147/82 97 09/02/23 16:00 52 L 22 151/82 97 09/02/23 15:56 59 L 19 147/82 98 09/02/23 15:41 55 L 19 151/82 98 09/02/23 15:40 152/91 09/02/23 15:30 58 L 17 143/70 95 09/02/23 15:13 22 168/83 95 09/02/23 14:50 98.6 F 34 L 20 174/84 99 Patient is an elderly male, very pleasant, in no acute distress. Patient is alert awake oriented to time place and person. Speech and language functions are normal. Patient can name and repeat very well. No aphasia or dysarthria. Attention, concentration and fund of knowledge is adequate. On cranial nerve examination, pupils are equal, round and reacting to light, visual lee revealed slight neglect in the left visual field, left upper more than left lower. Sometimes patient has left upper visual field defect as well. Extraocular muscles are intact with no nystagmus. Face is symmetric, tongue protrudes to the midline. Palatal elevation and sensation normal, hearing and shoulder shrug normal, facial sensation normal. On muscle strength testing, there is no pronator drift and the strength is normal in arms and legs distally and proximally. Deep tendon reflexes are symmetric 1-1+ bilaterally and plantars downgoing. Sensory to touch is equal with no neglect on double simultaneous stimulation. Cerebellar function showed no ataxia for [id number] testing. No dysdiadochokinesia. No ataxia for [id number] testing on either side. Tone and bulk of muscles normal. Gait deferred.. On general examination, there is no carotid bruit or murmur, S1-S2 audible. Chest is clear on consultation. Abdomen is soft nontender. No organomegaly, bowel sounds present. Peripheral pulses are present. No peripheral edema. Results - Laboratory Findings CBC and BMP: 09/02/23 15:14 09/02/23 15:14 Abnormal Lab Findings: Abnormal Labs 09/02/23 09/03/23 15:14 07:40 Eosinophils # 1.0 H HDL Cholesterol 39.10 L Assessment and Plan Assessment: * Acute ischemic stroke, right occipital lobe, with left homonymous hemianopia. Symptoms have remarkably improved. Patient still has some left sided visual field defect, more prominent in the left upper quadrant. * Hypertension * Hyperlipidemia Plan: MRI of the brain without contrast, revealed acute ischemia right occipital lobe with no significant mass effect. Degenerative and diffuse nonspecific white matter and findings most typical of remote microvascular ischemia. I personally reviewed MRI, agree with the findings. 2-D echo was a technically difficult study. Globally reduced left ventricular systolic function with LVEF 40 to 45%. No evidence of LV thrombus on contrast imaging. No significant valvular dysfunction. Patient has abnormal 2D echo. We will defer to IM if cardiology consultation is indicated. CTA head and neck showed: No significant arterial occlusive disease in the head or neck. Fasting a.m. lipid panel with cholesterol 125, LDL 68, HDL 39, triglycerides 88. Continue taking simvastatin 40 mg daily. Hemoglobin A1c Optimize control of blood pressure to normotensive level. Patient was not taking any antiplatelet medication at home. Recommend aspirin and Plavix for 21 days then stop Plavix and continue aspirin indefinitely. Neuro checks every 4 hours. Telemetry monitoring rule out any arrhythmia DVT prophylaxis: Heparin 5000 units subcu every 8 hours Thank you for the consult.
[2023-09-03] MEDS: CLOPIDOGREL 75 MG TAB PO SCH (15:35)
[2023-09-04 08:15] LABS: African American GFR (CKD) >90 (>60 ml/min/1.73 sqM); Anion Gap 8 mmol/L; Blood Urea Nitrogen 17 mg/dL (9-20); Calcium 8.9 mg/dL (8.4-10.2); Carbon Dioxide 22 mmol/L (22-30); Chloride 109 mmol/L (98-107); Glucose 115 mg/dL (74-99); Non-African American GFR(CKD) 87 (>60 ml/min/1.73 sqM); Potassium 3.9 mmol/L (3.5-5.1); Sodium 139 mmol/L (137-145)
[2023-09-04] MEDS: LOSARTAN 25 MG TAB PO SCH (08:15)
[2023-09-04] MEDS: METOPROLOL TARTRATE 12.5 MG TAB PO SCH (08:16)
[2023-09-04 08:19] VITALS: RESP 20
[2023-09-04 08:43] LABS: HCT 46.7 % (39.0-53.0); HGB 15.4 gm/dL (13.0-17.5); MCHC 33.1 g/dL (31.0-37.0); MCV 90.8 fL (80.0-100.0); Mean Platelet Volume 8.7; Platelet Count 198 k/uL (150-450); RBC 5.14 m/uL (4.30-5.90); RDW 13.3 % (11.5-15.5); WBC 9.2 k/uL (3.8-10.6)
--- NOTE | 2023-09-04 09:25 | P.CRDCN ---
History of Present Illness History of present illness: HISTORY OF PRESENT ILLNESS: This is a 77-year-old male with a past medical history significant for hypertension, hyperlipidemia, and asymptomatic frequent ventricular ectopy. Patient follows in the office with Dr. Farris. We have been asked to see the patient in consultation for cardiomyopathy. Patient examined at the bedside. Patient states on Saturday he lost vision out of his left eye and was having partial vision of his right eye. He states on Saturday he went to see his PCP who directed him to come to the emergency room. Patient was evaluated by neurology. He underwent MRI of the brain yesterday revealing acute ischemia right occipital lobe with no significant mass effect noted. The patient denies any chest pain or pressure. He denies shortness of breath. Telemetry reviewed with no evidence of atrial fibrillation. Vital signs are stable. He has been started on aspirin, atorvastatin, and Plavix. DIAGNOSTICS: - EKG reveals sinus mechanism with no signs of acute ischemia. Bigeminy. - Chest xray negative for acute process - Laboratory data: WBC 9.2. Hemoglobin 15.4. Platelet count 198. Sodium 139. Potassium 3.9. BUN 17. Creatinine 0.79. - Current home cardiac medications include simvastatin 40 mg daily and losartanhydrochlorothiazide 50-12.5 mg daily. - Echocardiogram obtained this admission revealed ejection fraction 40 to 45% with no obvious regional wall motion abnormalities, trace TR, and trace to mild MR. - Previous echocardiogram performed in the office in April 2022 revealed ejection fraction 52%, mild TR, mild MR - Patient underwent stress testing in March 2022 which was negative for ischemia REVIEW OF SYSTEMS: At the time of my exam: CONSTITUTIONAL: Denies fever or chills. HEENT: Denies blurred vision, vision changes, or eye pain. Denies hemoptysis CARDIOVASCULAR: Denies chest pain. Denies orthopnea. Denies PND. Denies palpit ations RESPIRATORY: Denies shortness of breath. GASTROINTESTINAL: Denies abdominal pain. Denies nausea or vomiting. HEMATOLOGIC: Denies bleeding disorders. GENITOURINARY: Denies any blood in urine. SKIN: Denies pruitis. Denies rash. PHYSICAL EXAM: VITAL SIGNS: Reviewed. GENERAL: Well-developed in no acute distress. HEENT: Head is normocephalic. Pupils are equal, round. Sclerae anicteric. Mucous membranes of the mouth are moist. Neck supple. No JVD or thyromegaly LUNGS: Respirations even and unlabored. Lungs essentially clear to auscultation bilaterally. HEART: Regular rate and rhythm. S1 and S2 heard. ABDOMEN: Soft. Nondistended. Nontender. EXTREMITIES: Normal range of motion. No clubbing or cyanosis. Peripheral pulses intact. No lower extremity edema NEUROLOGIC: Awake and alert. Oriented x 3. ASSESSMENT: Acute CVA of right occipital lobe New onset cardiomyopathy, 40-45%, ischemic versus nonischemic Frequent ventricular ectopy History of hypertension History of hyperlipidemia PLAN: Continue aspirin, Plavix, and Lipitor Resume losartan at a lower dose of 25 mg daily Add low-dose beta-joselin with metoprolol tartrate 12.5 mg twice a day as patient is borderline bradycardic Will add Farxiga and Aldactone on an outpatient basis Patient to receive 30-day event monitor at the time of discharge to rule out arrhythmias Patient may be discharged home from a cardiac standpoint and follow-up on an outpatient basis Nurse practitioner note has been reviewed by physician. Signing provider agrees with the documented findings, assessment, and plan of care documented by OIL EXPELLER OPERATOR as a scribe. Past Medical History Past Medical History: Hyperlipidemia, Hypertension History of Any Multi-Drug Resistant Organisms: None Reported Past Surgical History: No Surgical Hx Reported Past Psychological History: No Psychological Hx Reported Smoking Status: Never smoker Past Alcohol Use History: None Reported Past Drug Use History: Marijuana Medications and Allergies Home Medications Medication Instructions Recorded Confirmed Type Simvastatin [Zocor] 40 mg PO DAILY 09/01/17 09/02/23 History Calcium Carbonate [Calcium] 600 mg PO DAILY 09/02/23 09/02/23 History Cholecalciferol [Vitamin D3 (25 25 mcg PO DAILY 09/02/23 09/02/23 History Mcg = 1000 Iu)] Losartan-Hctz 50-12.5 mg [Hyzaar 1 tab PO DAILY 09/02/23 09/02/23 History 50-12.5] Allergies Allergy/AdvReac Type Severity Reaction Status Date / Time No Known Allergies Allergy Verified 09/02/23 15:31 Physical Exam Vitals: Vital Signs Temp Pulse Pulse Resp BP BP BP 09/04/23 08:00 97.6 F 65 20 135/82 09/04/23 04:00 68 19 126/79 09/03/23 23:54 98.2 F 64 19 140/80 09/03/23 21:51 98.1 F 64 19 131/91 09/03/23 21:23 64 19 116/81 09/03/23 18:56 54 L 14 148/88 09/03/23 18:20 54 L 14 134/95 09/03/23 16:36 56 L 14 122/80 09/03/23 14:56 73 16 151/82 09/03/23 13:56 56 L 16 141/86 09/03/23 12:56 56 L 14 145/81 09/03/23 11:56 53 L 14 141/71 09/03/23 11:10 61 18 143/95 Pulse Ox 09/04/23 08:00 95 09/04/23 04:00 99 09/03/23 23:54 97 09/03/23 21:51 93 L 09/03/23 21:23 96 09/03/23 18:56 95 09/03/23 18:20 95 09/03/23 16:36 96 09/03/23 14:56 95 09/03/23 13:56 95 09/03/23 12:56 96 09/03/23 11:56 97 09/03/23 11:10 96 Intake and Output 09/03/23 09/04/23 09/04/23 22:59 06:59 14:59 Intake Total 180 Balance 180 Intake: Oral 180 Other: Voiding Method Toilet Toilet # Voids 2 Weight 90.718 kg Results 09/04/23 07:40 09/04/23 07:40 Lipids 09/03/23 Range/Units 07:40 Triglycerides 88.70 (0.00-149.00) mg/dL Cholesterol 125.00 (0.00-200.00) mg/dL HDL Cholesterol 39.10 L (40.00-60.00) mg/dL Cholesterol/HDL Ratio 3.20 Ratio CBC 09/04/23 Range/Units 07:40 WBC 9.2 (3.8-10.6) k/uL RBC 5.14 (4.30-5.90) m/uL Hgb 15.4 (13.0-17.5) gm/dL Hct 46.7 (39.0-53.0) % Plt Count 198 (150-450) k/uL Comprehensive Metabolic Panel 09/04/23 Range/Units 07:40 Sodium 139 (137-145) mmol/L Potassium 3.9 (3.5-5.1) mmol/L Chloride 109 H (98-107) mmol/L Carbon Dioxide 22 (22-30) mmol/L BUN 17 (9-20) mg/dL Creatinine 0.79 (0.66-1.25) mg/dL Glucose 115 H (74-99) mg/dL Calcium 8.9 (8.4-10.2) mg/dL Current Medications Generic Name Dose Route Start Last Admin Trade Name Freq PRN Reason Stop Dose Admin Aspirin 325 mg 09/03/23 09:00 09/04/23 08:16 Aspirin 325 Mg Tab PO 325 mg DAILY LINDA Administration Atorvastatin Calcium 40 mg 09/02/23 16:45 09/04/23 08:16 Atorvastatin 40 Mg Tab PO 40 mg DAILY LINDA Administration Clopidogrel Bisulfate 75 mg 09/03/23 14:30 09/04/23 08:16 Clopidogrel 75 Mg Tab PO 09/24/23 14:31 75 mg DAILY LINDA Administration Heparin Sodium (Porcine) 5,000 unit 09/03/23 08:00 09/04/23 08:16 Heparin Sodium,Porcine 5,000 Unit/Ml 1 Ml Vial SQ 5,000 unit Q8HR LINDA Administration Losartan Potassium 25 mg 09/04/23 09:00 09/04/23 08:15 Losartan 25 Mg Tab PO 25 mg DAILY LINDA Administration Metoprolol Tartrate 12.5 mg 09/04/23 09:00 09/04/23 08:16 Metoprolol Tartrate 12.5 Mg Tab PO 12.5 mg BID LINDA Administration Naloxone HCl 0.2 mg 09/02/23 16:32 Naloxone 0.4 Mg/Ml 1 Ml Vial IV Q2M PRN Opioid Reversal Intake and Output 09/03/23 09/04/23 09/04/23 22:59 06:59 14:59 Intake Total 180 Balance 180 Intake: Oral 180 Other: Voiding Method Toilet Toilet # Voids 2 Weight 90.718 kg 09/04/23 07:40 09/04/23 07:40
--- NOTE | 2023-09-04 15:46 | P.DS ---
Providers Date of admission: 09/02/23 16:32 Expected date of discharge: 09/04/23 Attending physician: Damon Zhou MD Consults: 09/02/23 16:32 Consult Physician Urgent Consulting Provider: Julio Wisdom Consult Reason/Comments: Hemianopsia, suspected CVA Do you want consulting provider notified?: Yes 09/03/23 15:21 Consult Physician Routine Consulting Provider: Beny Jensen Consult Reason/Comments: cardiomyopathy Do you want consulting provider notified?: Yes Primary care physician: Stated None Hospital Course: Discharge Diagnosis: Acute right occipital lobe CVA HTN HLD Cardiomyopathy with ejection fraction 40 to 45% Prediabetes A1C 6 Hospital Course: Patient is a 77-year-old male with hypertension, dyslipidemia, and vitamin D deficiency who presented to the emergency department at the recommendations of his dealer compliance representative. On 08/31 he lost vision in his left eye for about 30 minutes which starting improving but continued to have some limitation in his peripheral vision. He therefore went to the dealer compliance representative on 09/01 and underwent testing and was found to have visual loss in the left superior quadrant and was sent to the hospital for possible stroke evaluation. On arrival to the ER he was hypertensive with a blood pressure of 174/84. He was noted to be bradycardic. Initial laboratory analysis was unremarkable. Initial chest x-ray demonstrated no acute process. CT head demonstrated no acute bleed or mass effect CTA of the head and neck demonstrated no significant arterial occlusive disease in the head or neck. He was given a dose of aspirin and was started on Lipitor. Arrangements were made for observation. He underwent MRI of the brain which demonstrated acute ischemic right occipital lobe CVA without mass effect. His echocardiogram showed a depressed ejection fraction of 40 to 45%. He was seen by neurology who recommended aspirin, Plavix, and Lipitor. Cardiology was consulted for his ischemic cardiomyopathy and they recommended losartan and metoprolol as well as follow-up. He will have a 30-day event monitor at the time of discharge. Patient was cleared for discharge home. Follow-up: Dr. Farris in 6 weeks, Dr. Piña in 1 to 2 weeks, Regina self and his primary care provider out of [facility] and 2 to 3 days, Dr. Frank of ophthalmology in 1 week. No driving until cleared by ophthalmology.. He will take Plavix for 21 days and then can discontinue Plavix and continue on aspirin indefinitely. Patient seen and examined at bedside. Doing well, still with visual changes. Vital signs reviewed and stable. General: Nontoxic, no distress, appears at stated age Cardiovascular: S1S2 reg, no murmur, positive posterior tibial pulse bilateral, Lungs: CTA bilateral, no rhonchi, no rales, no accessory muscle use Abdominal: Soft, nontender to palpation, no guarding, no appreciable organomegaly Ext: No gross muscle atrophy, no edema b/l lower extremities, no contractures Neuro: CN II-XI grossly intact, no focal neuro deficits Psych: Alert, oriented, appropriate affect A total of 32 minutes of time were spent preparing this complex discharge summary. Patient was discharged on 09/04/23. This dictation was prepared using [employer] voice recognition software. Though every attempt is made to correct errors during dictation some may still exist. Patient Condition at Discharge: Stable Plan - Discharge Summary Discharge Rx Participant: Yes New Discharge Prescriptions: New Aspirin 325 mg PO DAILY #30 tab Losartan [Cozaar] 25 mg PO DAILY #30 tab Atorvastatin [Lipitor] 40 mg PO DAILY #30 tab Metoprolol Tartrate [Lopressor] 12.5 mg PO BID #60 tab Clopidogrel [Plavix] 75 mg PO DAILY #21 tab Continue Calcium Carbonate [Calcium] 600 mg PO DAILY Cholecalciferol [Vitamin D3 (25 Mcg = 1000 Iu)] 25 mcg PO DAILY Discontinued Simvastatin [Zocor] 40 mg PO DAILY Losartan-Hctz 50-12.5 mg [Hyzaar 50-12.5] 1 tab PO DAILY Discharge Medication List Calcium Carbonate [Calcium] 600 mg PO DAILY 09/02/23 [History] Cholecalciferol [Vitamin D3 (25 Mcg = 1000 Iu)] 25 mcg PO DAILY 09/02/23 [History] Aspirin 325 mg PO DAILY #30 tab 09/04/23 [Rx] Atorvastatin [Lipitor] 40 mg PO DAILY #30 tab 09/04/23 [Rx] Clopidogrel [Plavix] 75 mg PO DAILY #21 tab 09/04/23 [Rx] Losartan [Cozaar] 25 mg PO DAILY #30 tab 09/04/23 [Rx] Metoprolol Tartrate [Lopressor] 12.5 mg PO BID #60 tab 09/04/23 [Rx] Follow up Appointment(s)/Referral(s): Basilio Farris MD [STAFF PHYSICIAN] - 6 Weeks Queta Piña MD [REFERRING] - 2 Weeks Regina Gaitan [REFERRING] - 1-2 Days Moshe Frank MD [STAFF PHYSICIAN] - 1 Week None,Stated [Primary Care Provider] - 1-2 days Activity/Diet/Wound Care/Special Instructions: Activity: tolerated No driving until cleared by ophthalmology Diet: Heart healthy Special Instructions: Thank you for trusting us with your care. We wish you well on your journey to better health. Hope your animals are okay when you get home! Discharge Disposition: HOME SELF-CARE
[2023-09-04 16:52] VITALS: BP 137/79; PULSE 60; TEMP 97.7
--- NOTE | 2023-09-05 10:42 | P.PN ---
Subjective Progress Note Date: 09/04/23 Patient was seen for a follow-up. Patient is laying comfortably in the bed. Patient's visual lee are better. Objective - Vital Signs Vital signs: Vital Signs Temp 97.9 F 09/04/23 12:00 Pulse 46 L 09/04/23 12:00 Resp 20 09/04/23 12:00 BP 161/74 09/04/23 12:00 Pulse Ox 95 09/04/23 12:00 FiO2 Intake & Output 09/03/23 09/04/23 09/04/23 18:59 06:59 18:59 Intake Total 360 Balance 360 Weight 90.718 kg Intake: Oral 360 Other: Voiding Method Toilet # Voids 2 2 - Exam Examination significant for persistent some very peripheral visual field defect left lateral side, left upper more than left lower. Rest of the examination is nonfocal. - Labs CBC & Chem 7: 09/04/23 07:40 09/04/23 07:40 Labs: Abnormal Lab Results - Last 24 Hours (Table) 09/04/23 Range/Units 07:40 Chloride 109 H (98-107) mmol/L Glucose 115 H (74-99) mg/dL Assessment and Plan Assessment: * Acute ischemic stroke, right occipital lobe, with left homonymous hemianopia. Symptoms have remarkably improved. Patient still has some left sided visual field defect, more prominent in the left upper quadrant. * Hypertension * Hyperlipidemia Plan: MRI of the brain without contrast, revealed acute ischemia right occipital lobe with no significant mass effect. Degenerative and diffuse nonspecific white matter and findings most typical of remote microvascular ischemia. I personally reviewed MRI, agree with the findings. 2-D echo was a technically difficult study. Globally reduced left ventricular systolic function with LVEF 40 to 45%. No evidence of LV thrombus on contrast imaging. No significant valvular dysfunction. Cardiology input appreciated. Recommending continue aspirin, Plavix and Lipitor. Blood pressure medications adjusted. Recommended 30-day event monitor at the time of discharge. CTA head and neck showed: No significant arterial occlusive disease in the head or neck. Fasting a.m. lipid panel with cholesterol 125, LDL 68, HDL 39, triglycerides 88. Continue taking simvastatin 40 mg daily. Hemoglobin A1c 6.0. Optimize control of blood pressure to normotensive level. Patient was not taking any antiplatelet medication at home. Recommend aspirin and Plavix for 21 days then stop Plavix and continue aspirin indefinitely. Neuro checks every 4 hours. Telemetry monitoring shows no arrhythmia. Neurologically clear for discharge.
== END 2023-09-04 18:00 | disposition home or self-care (01) | DRG 65 ==
LOC: EC 14:49 → 3SCARD 16:32
PROVIDERS: ADMIT Student in an Organized Health Care Education/Training Program; ATTEND Student in an Organized Health Care Education/Training Program
DX: I63.9 Cerebral infarction, unspecified (principal); I42.9 Cardiomyopathy, unspecified; H53.462 Homonymous bilateral field defects, left side; E78.5 Hyperlipidemia, unspecified; I10 Essential (primary) hypertension; R29.702 NIHSS score 2; I08.1 Rheumatic disorders of both mitral and tricuspid valves
CPT/HCPCS: 36415; 70450; 70496; 70498; 70551; 71046; 80048; 80053; 80061; 82550; 83036; 84484; 85025; 85027; 85610; 85730; 93005; 93270; 93306; 99285

== ENCOUNTER 2023-11-29 05:48 | Day surgery (SDC) | payer MEDICARE ==
[2023-11-28 09:52] VITALS: BMI 28.7
[~2023-11-29 05:48] MED LIST: ALPRAZolam 0.25 MG TAB PO PRN; ALPRAZolam 0.5 MG TAB PO PRN; HEPARIN SODIUM,PORCINE (1 ML) 2,500 UNIT in SODIUM CHLORIDE 0.9% 250 ML IRRIGATION PRN; HEPARIN SODIUM,PORCINE 10,000 UNIT in SODIUM CHLORIDE 0.9% 1,000 ML IRRIGATION PRN; NITROGLYCERIN SL TABS 0.4 MG TAB SUBLINGUAL PRN
[2023-11-29 06:21] VITALS: RESP 16; TEMP 98.1
[2023-11-29] MEDS: SODIUM CHLORIDE 0.9% 1,000 ML in EMPTY BAG 1 BAG IV SCH (06:22)
[2023-11-29] MEDS: IV FLUID CONTINUATION 1,000 ML IV ONE (06:22)
[2023-11-29] MEDS: ASPIRIN 325 MG TAB PO STA (06:22)
[2023-11-29 06:27] LABS: Basophils # (A) 0.1 k/uL (0-0.2); Basophils % (A) 1 %; Eosinophils # (A) 1.3 k/uL (0-0.7); Eosinophils % (A) 16 %; HCT 50.1 % (39.0-53.0); HGB 15.8 gm/dL (13.0-17.5); Lymphocytes # (A) 2.2 k/uL (1.0-4.8); Lymphocytes % (A) 28 %; MCH 29.1 pg (25.0-35.0); MCHC 31.5 g/dL (31.0-37.0); MCV 92.2 fL (80.0-100.0); Mean Platelet Volume 7.9; Monocytes # (A) 0.5 k/uL (0-1.0); Monocytes % (A) 6 %; Neutrophils # (A) 3.7 k/uL (1.3-7.7); Neutrophils % (A) 47 %; Platelet Count 201 k/uL (150-450); RBC 5.44 m/uL (4.30-5.90); RDW 13.1 % (11.5-15.5); WBC 7.8 k/uL (3.8-10.6)
[2023-11-29 06:48] LABS: African American GFR (CKD) >90 (>60 ml/min/1.73 sqM); Anion Gap 8 mmol/L; Blood Urea Nitrogen 22 mg/dL (9-20); Carbon Dioxide 25 mmol/L (22-30); Chloride 106 mmol/L (98-107); Glucose 103 mg/dL (74-99); Non-African American GFR(CKD) 84 (>60 ml/min/1.73 sqM); Potassium 3.7 mmol/L (3.5-5.1); Sodium 139 mmol/L (137-145)
[2023-11-29] MEDS ORDERED: LIDOCAINE 1% INJ 10MG/ML (20 ML MDV) ONE (07:24)
[2023-11-29] MEDS ORDERED: VERAPAMIL 2.5 MG/ML 2 ML AMP ONE (07:25)
[2023-11-29] MEDS ORDERED: fentaNYL (PF) 50 MCG/ML 2 ML AMP ONE (07:25)
[2023-11-29] MEDS ORDERED: HEPARIN SODIUM 1,000 UN/ML (10ML VL) ONE (07:25)
[2023-11-29] MEDS: fentaNYL (PF) 50 MCG/ML 2 ML AMP IVP ONE (07:29)
[2023-11-29] MEDS: LIDOCAINE 1% INJ 10MG/ML (20 ML MDV) SQ ONE ×2 (07:30)
[2023-11-29] MEDS: VERAPAMIL SYRINGE (5 MG/10 ML) INTRAARTER ONE (07:32)
[2023-11-29] MEDS: HEPARIN SODIUM 1,000 UN/ML (10ML VL) IVP ONE (07:36)
[2023-11-29] MEDS: IOPAMIDOL-370 100ML BTL INJ ONE (07:44)
[2023-11-29] MEDS ORDERED: RX INFO: IV CONTRAST WAS GIVEN 1 EACH MISC MISCELLANE PRN (07:54)
[2023-11-29] MEDS ORDERED: SODIUM CHLORIDE 0.9% 1,000 ML IV SCH (08:00)
--- NOTE | 2023-11-29 08:00 | P.CARDCATH ---
Date of Procedure: 11/29/23 Description of Procedure: Cardiac Catheterization: The patient is a 77-year-old male who was noted to have episodes of atrial flutter and evidence of cardiomyopathy on his testing. Recommendations were made regarding cardiac catheterization, the risks and the complications were discussed with the patient who is in full understanding and agreement. Procedure Description: Patient was brought to carpenter/labor in fasting semi-sedated state after receiving Fentanyl and Benadryl achieiving moderate conscious sedated state. Using Xylocaine Anesthesia and modified Seldinger technique, a 6-Tajik sheath was introduced in the right radial artery . Subsequently, selective coronary angiography was performed using a 5-Tajik 3.5 bend Diana catheter. Multiple views of the coronary artery including hemiaxial views were obtained. Following that, catheter and sheath were removed. Hemostasis was obtained with deployment of vascular band . There was no immediate complication. Patient was returned to room in stable condition. Of note, the patient received a total of 5000 units of intravenous heparin as well as intra-arterial verapamil. Findings: Fluoroscopy: Mild calcification of the proximal LAD was noted Left main: This is a large size vessel, bifurcating into LAD and left circumflex, left main has no obstructive disease LAD: This is a large size vessel, calcified in the proximal segment, giving rise to a large diagonal branch proximally. The LAD has mild intimal disease proximally of 20 to 30% with no evidence of high-grade stenosis Left circumflex: This is a nondominant large size vessel giving rise to 2 obtuse marginal branch the left circumflex has a 10 to 20% plaque proximally with no hi gh-grade stenosis RCA: This is a large dominant vessel, bifurcating distally to PDA and PLV, the right coronary artery and its branches have no obstructive disease Left Ventriculogram: Not performed Conclusion: 1. Calcified LAD 2. Mild obstructive disease in the LAD and left circumflex 3. Right dominance Recommendations: I see no evidence to suggest ischemic cardiomyopathy. We will continue maximizing his medical therapy and depending on his progress further recommendations will be made. The findings and the recommendations were discussed with the patient and he was in full understanding and agreement. Duration of sedation is 18 minutes.
[2023-11-29 11:41] VITALS: BP 155/50; PULSE 58
[2023-11-30] MEDS ORDERED: LOSARTAN 25 MG TAB PO SCH (09:00)
[2023-11-30] MEDS ORDERED: CHOLECALCIFEROL 25 MCG (1000 IU) TABLET PO SCH (09:00)
[2023-11-30] MEDS ORDERED: CALCIUM CARBONATE 500 MG CHEWABLE PO SCH (09:00)
[2023-11-30] MEDS ORDERED: ATORVASTATIN 40 MG TAB PO SCH (09:00)
== END 2023-11-29 11:34 | disposition home or self-care (01) ==
LOC: CATHCVL 05:48
PROVIDERS: ATTEND Internal Medicine Interventional Cardiology
DX: I25.10 Atherosclerotic heart disease of native coronary artery without angina pectoris (principal); I42.9 Cardiomyopathy, unspecified; I48.91 Unspecified atrial fibrillation; Z79.01 Long term (current) use of anticoagulants; Z79.899 Other long term (current) drug therapy
CPT/HCPCS: 93454; 80048; 85025; 99152; C1769 ×2; C1894; J2001; J3010; J1644; Q9967

== ENCOUNTER → 2024-03-09 | Outpatient (CLI) | payer MEDICARE ==
[2024-03-09 15:01] LABS: HCT 45.6 % (39.6-50.0); HGB 14.8 g/dL (13.0-17.0); MCH 29.5 pg (27.0-32.0); MCHC 32.5 g/dL (32.0-37.0); Mean Platelet Volume 9.8 FL (9.5-12.2); NRBC Per 100 WBC 0 X 10*3/uL (0.00-0.01); Platelet Count 252 X 10*3/uL (140-440); RBC 5.01 X 10*6/uL (4.40-5.60); RDW 13.5 % (11.5-14.5); WBC 8.23 X 10*3/uL (4.50-10.00)
[2024-03-09 15:32] LABS: Blood Urea Nitrogen 13.7 mg/dL (9.0-27.0); Carbon Dioxide 27.8 mmol/L (21.6-31.8); Chloride 104 mmol/L (96-109); Potassium 4.4 mmol/L (3.5-5.5); Sodium 142 mmol/L (135-145)
== END | disposition home or self-care (01) ==
LOC: LABPAT 09:50
PROVIDERS: ATTEND Internal Medicine Clinical Cardiac Electrophysiology
DX: Z01.812 Encounter for preprocedural laboratory examination (principal); I49.3 Ventricular premature depolarization; I48.3 Typical atrial flutter
CPT/HCPCS: 36415; 80051; 82565; 84520; 85027

== ENCOUNTER 2024-03-12 11:55 | Day surgery (SDC) | payer MEDICARE ==
[2024-03-06 10:27] VITALS: BMI 28.4
[2024-03-12] MEDS: SODIUM CHLORIDE 0.9% 1,000 ML IV SCH (12:22)
[2024-03-12] MEDS: SODIUM CHLORIDE 0.9% 1,000 ML IV ONE (12:22)
[2024-03-12 12:40] LABS: ALT 25 U/L (4-49); AST 28 U/L (17-59); African American GFR (CKD) >90 (>60 ml/min/1.73 sqM); Albumin 4.2 g/dL (3.5-5.0); Alkaline Phosphatase 74 U/L (38-126); Anion Gap 3 mmol/L; Blood Urea Nitrogen 20 mg/dL (9-20); Calcium 9.5 mg/dL (8.4-10.2); Carbon Dioxide 29 mmol/L (22-30); Chloride 109 mmol/L (98-107); Glucose 101 mg/dL (74-99); Non-African American GFR(CKD) 87 (>60 ml/min/1.73 sqM); Potassium 3.8 mmol/L (3.5-5.1); Sodium 141 mmol/L (137-145); Total Bilirubin 1.2 mg/dL (0.2-1.3); Total Protein 6.9 g/dL (6.3-8.2)
[2024-03-12] MEDS ORDERED: HEPARIN SODIUM,PORCINE 5,000 UNIT/ML 1 ML VIAL ONE (14:05)
[2024-03-12] MEDS ORDERED: fentaNYL (PF) 50 MCG/ML 2 ML AMP ONE (14:05)
[2024-03-12] MEDS ORDERED: ISOPROTERENOL 250 MCG/1.25 ML SYR IV ONE (14:05)
[2024-03-12] MEDS ORDERED: PROPOFOL 10 MG/ML 20 ML VIAL IV ONE (14:05)
[2024-03-12] MEDS ORDERED: GLYCOPYRROLATE 0.2 MG/ML 2 ML VIAL ONE (14:05)
[2024-03-12] MEDS ORDERED: HEPARIN SODIUM,PORCINE 10,000 UNIT/ML 1 ML VIAL ONE (14:05)
[2024-03-12] MEDS ORDERED: HYDROmorphone (PF) 1 MG/ML ONE (14:05)
[2024-03-12] MEDS ORDERED: METOPROLOL TARTRATE 5 MG/5 ML VIAL IVP ONE (14:05)
[2024-03-12] MEDS ORDERED: MIDAZOLAM 2 MG/2 ML VIAL ONE (14:05)
[2024-03-12] MEDS: HEPARIN SODIUM,PORCINE 10,000 UNIT in SODIUM CHLORIDE 0.9% 1,000 ML IRRIGATION ONE (14:06)
[2024-03-12] MEDS: LIDOCAINE 1% INJ 10MG/ML (20 ML MDV) SQ ONE ×2 (15:00→15:07)
[2024-03-12] MEDS: HEPARIN SOD,PORK IN 0.45% NACL 25,000 UNIT in 0.45% NACL 1 250ML.BAG IV ONE (16:09)
[2024-03-12] MEDS: HEPARIN SODIUM (1,000 UNIT/ML) 1,000 UNIT in SODIUM CHLORIDE 0.9% 1,000 ML IRRIGATION ONE (16:09)
[2024-03-12] MEDS: LACTATED RINGERS 1,000 ML IV ONE (18:05)
[2024-03-12] MEDS: DEXTROSE 5% IN WATER 100 ML with AMIODARONE 150 MG IV ONE (18:53)
[2024-03-12] MEDS ORDERED: ACETAMINOPHEN TAB 325 MG TAB PO PRN (18:59)
--- NOTE | 2024-03-12 19:03 | P.HPCAR ---
History of Present Illness This is Dr. Gardner dictating an H/P on this patient The patient was interviewed and examined IMPRESSION / ASSESSMENT: Frequent PVCs Nonsustained VT Mild cardiomyopathy Nonobstructive CAD, mild History of atrial fibrillation PLAN: Diagnose EP study and PVC/VT ablation based upon the study Hold Eliquis for 24 hours postprocedure for likely arterial access since the patient has left-sided PVCs HPI Patient has frequent PVCs on EKG and event monitor. He has a mild cardiomyopathy. No significant coronary artery disease by coronary angiography Denies any dizziness lightheadedness any sustained palpitations Denies any fever chills cough expectoration ROS: No fever chills or rigors, no cough, phlegm or expectoration, no nausea, vomiting or diarrhea, no hematuria, dysuria, no musculoskeletal complaints, no strokes or seizures, no skin lesions. EXAMINATION: Pulse rate 51, blood pressure 160/70 mmHg 156/81 mmHg Rhythm regular No murmurs No JVD Abdomen soft nontender Clear lungs no rhonchi no crackles No lower extremity edema REVIEW OF LABS, ECG & MEDICAL DATA Sodium 141 potassium 3.8 BUN 20 creatinine 0.8 AST and ALT normal TSH 0.7 Physical Exam Vitals: Vital Signs Temp Pulse Resp BP BP Pulse Ox 03/12/24 12:19 98.1 F 51 L 16 165/70 156/81 98 Intake and Output 03/12/24 03/12/24 03/12/24 06:59 14:59 22:59 Intake Total 1005 527 Output Total 1000 Balance 1005 -473 Intake: IV 1005 527 Output: Urine 1000 Other: Weight 91.4 kg Past Medical History Past Medical History: CVA/TIA, Eye Disorder, GERD/Reflux, Hearing Disorder / Deafness, Hyperlipidemia, Hypertension Additional Past Medical History / Comment(s): SEE DR. GARDNER'S H&P. STROKE AUGUST 2023 WITH VISION AFFECTED BUT STATES HAS SINCE RESOLVED History of Any Multi-Drug Resistant Organisms: None Reported Past Surgical History: No Surgical Hx Reported Additional Past Surgical History / Comment(s): colonoscopy x2. Past Anesthesia/Blood Transfusion Reactions: No Reported Reaction Additional Past Anesthesia/Blood Transfusion Reaction / Comment(s): No hx of blood transfusion. Past Psychological History: No Psychological Hx Reported Smoking Status: Former smoker Past Alcohol Use History: Rare Additional Past Alcohol Use History / Comment(s): Only smoked for two years age [age]. Past Drug Use History: Marijuana Additional Drug Use History / Comment(s): Smokes Marijuana occasionally. no Marijuana 24 hrs before procedure. - Past Family History Sister(s) Family Medical History: Cancer Additional Family Medical History / Comment(s): Stomach cancer. Physical Examination Vital Signs Temp Pulse Resp BP BP Pulse Ox 03/12/24 12:19 98.1 F 51 L 16 165/70 156/81 98 Intake and Output 03/12/24 03/12/24 03/12/24 06:59 14:59 22:59 Intake Total 1005 527 Output Total 1000 Balance 1005 -473 Intake: IV 1005 527 Output: Urine 1000 Other: Weight 91.4 kg Results 03/12/24 12:17 Cardiac Enzymes 03/12/24 Range/Units 12:17 AST 28 (17-59) U/L Comprehensive Metabolic Panel 03/12/24 Range/Units 12:17 Sodium 141 (137-145) mmol/L Potassium 3.8 (3.5-5.1) mmol/L Chloride 109 H (98-107) mmol/L Carbon Dioxide 29 (22-30) mmol/L BUN 20 (9-20) mg/dL Creatinine 0.78 (0.66-1.25) mg/dL Glucose 101 H (74-99) mg/dL Calcium 9.5 (8.4-10.2) mg/dL AST 28 (17-59) U/L ALT 25 (4-49) U/L Alkaline Phosphatase 74 (38-126) U/L Total Protein 6.9 (6.3-8.2) g/dL Albumin 4.2 (3.5-5.0) g/dL Current Medications Generic Name Dose Route Start Last Admin Trade Name Freq PRN Reason Stop Dose Admin Acetaminophen 650 mg 03/12/24 18:59 Acetaminophen Tab 325 Mg Tab PO Q6HR PRN Mild Pain (Scale 1 to 3) Apixaban 5 mg 03/13/24 21:00 Apixaban 5 Mg Tab PO BID LINDA Protocol Atorvastatin Calcium 40 mg 03/13/24 09:00 Atorvastatin 40 Mg Tab PO QAM [facility] Acetaminophen 1,000 mg/ IV 100 mls @ 400 mls/hr 03/12/24 19:15 Solution IVPB 03/12/24 19:29 ONCE ONE Sodium Chloride 12 ml 03/12/24 18:59 Sodium Chloride 0.9% Flush 10 Ml Syringe IV Q12HR PRN Line Flush Spironolactone 25 mg 03/13/24 09:00 Spironolactone 25 Mg Tab PO DAILY LINDA Intake and Output 03/12/24 03/12/24 03/12/24 06:59 14:59 22:59 Intake Total 1005 527 Output Total 1000 Balance 1005 -473 Intake: IV 1005 527 Output: Urine 1000 Other: Weight 91.4 kg Patient Weight 03/13/24 06:59 Weight 91.4 kg 03/12/24 12:17
--- NOTE | 2024-03-12 19:14 | P.EPPROC ---
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 Patient was brought to the EP lab in a fasting state. Written informed consent was obtained prior to the procedure. Venous sheaths placed in the left femoral vein and via these diagnostic catheters were positioned in the high right atrium His bundle area right ventricle and coronary sinus. Large coronary sinus, small tricuspid valve inlet Sinus cycle length 1072 ms, CT interval 204 ms, QRS 116 and QT 431 ms AH 100 ms and HV interval 50 ms Sinus node recovery times were 1214, 1104 ms AV node Wenckebach block 490 ms At the start of the study very infrequent PVCs were noted but of 3 different morphologies. Within each morphology there was subtle variation in the QRS morphology noted Diagnostic EP study was performed both on and off Isopril Atrial fibrillation was easily inducible multiple times during the ablation but there was spontaneous termination On high-dose Isopril with ventricular extra stimulation at 400/290 ms from the RV septum, VT was induced This VT had a QR morphology in lead V1 upright in all of the precordial leads with delta wave lead configuration, upright with delta wave lead configuration in the inferior leads and an RS pattern in lead I with a very broad R A Penta ray catheter was placed in the aorta and an intracardiac echo catheter was placed in the right atrium 3D anatomic mapping was performed Electroanatomic mapping with activation mapping was performed. The earliest site of the VT was localized to the right coronary cusp just beyond it at the junction of the RCC and the LVOT When the irrigated catheter was then placed through a short 8 [place] sheath the aorta was very unfurled/tortuous and did not allow easy passage of the aortic valve Therefore a long sheath was placed and this facilitated entry across aortic valve However on account of the tortuosity of the aortic root it was difficult to place the catheter in the LVOT chest pain of the aortic root However activation mapping was easily performed and finally we were able to stabilize the catheter at the site of the early activation where the pace map was greater than 95%, at the site of early activation. RF ablation was performed here However on closer inspection it appeared that the ablation was actually performed in the right coronary cusp rather than the LVOT The earliest signals were -37 ms from the onset of the QRS of the VT At the end of the procedure all catheters were removed closure devices applied both for the artery and for the veins IV heparin was used through the procedure and this was discontinued at the end of the procedure Patient Toller the procedure well without any acute complications Plan hold Eliquis for 24 hours Aspirin 81 mg p.o daily for 1 month then stop Continue all other medications
[2024-03-12] MEDS: ACETAMINOPHEN IV (For NPO) 1,000 MG in EMPTY BAG 1 BAG IVPB ONE (21:02)
[2024-03-12] MEDS: ASPIRIN 325 MG TAB PO SCH (21:17)
[2024-03-13 07:44] VITALS: BP 115/69; PULSE 47; RESP 16; TEMP 97.5
[2024-03-13] MEDS: SPIRONOLACTONE 25 MG TAB PO SCH (08:52)
[2024-03-13] MEDS: ATORVASTATIN 40 MG TAB PO SCH (08:52)
--- NOTE | 2024-03-13 09:53 | P.EPPROC ---
- EP Procedure Note Electrophysiology Procedure Note: Extended procedure duration 1. Patient has a history of frequent PVCs. However even in the unsedated state patient had very infrequent PVCs 2. At least 3 different PVC morphologies were noted. For each PVC morphology there were subtle variations in the QRS pattern. Therefore mapping of PVCs was not performed on account of the infrequency of PVCs but more importantly the changing morphology of the PVCs, hence pace mapping was not attempted 3. Sustained monomorphic VT was induced on high-dose Isopril with ventricular extra stimulation from the septum with single extrastimuli. However these episodes were nonsustained and could not be induced reliably and consistently. Hence mapping took a considerable amount of time 4. This VT focus had an RS pattern morphology in lead I with very broad R wave. QR pattern in lead V1, delta wave like configuration and the rest of the precor dial leads and in the inferior leads upright This was mapped to the right coronary cusp very close to the junction between the cusp and the LVOT 5. A very tortuous and unfurled aorta and the aortic root-LVOT relationship was such that the Penta ray catheter was difficult to manipulate around the LVOT and in the cusp. More so, manipulation of the ablation catheter was even more difficult on account of this unusual anatomic relationship between the aortic root and the LVOT. A long sheath was placed which assisted in mapping. Fortunately, the catheter would repeatedly go into the LVOT/RCC area, in the region of the earliest activation. Pace mapping was then performed and the more than 95 to 97% concordant pace map was obtained RF ablation was performed. This VT morphology had a completely different QRS morphology as compared to the other 3-4 PVC morphologies During the EP study atrial fibrillation, short-lived, was very easily induced. Patient has a history of atrial fibrillation. Patient also has a history of cardiomyopathy Future plan 1. Consider cardiac MRI given the multiplicity of PVC morphologies and the subtle variations within each PVC morphology nonischemic cardiomyopathy 2. Prolonged Holter monitoring rather than event monitoring to document the A- fib burden and PVC burden 3. Clarification of etiology of nonischemic cardiomyopathy depending upon the relative burden of atrial fibrillation versus that of the PVCs versus a structural nonischemic abnormality on cardiac MRI Plan for aspirin for 30 days in addition to Eliquis, then stop aspirin thereafter
--- NOTE | 2024-03-13 10:51 | P.DS ---
Providers Attending physician: Lalo Gardner Primary care physician: [facility] Course: This is a 78-year-old male who underwent VT ablation yesterday with Dr. Gardner. Patient examined this morning bedside. Patient denies any chest pain or pressure. He denies any shortness of breath. Vital signs are stable. The patient was deemed stable for discharge home today from a cardiac standpoint by Dr. Gardner. Please see MAR for further hospital course details. The patient i s to resume his Eliquis. Additionally, he is prescribed aspirin 81 mg daily for 30 days and then he will discontinue this. - EP Procedure Note Electrophysiology Procedure Note: Extended procedure duration 1. Patient has a history of frequent PVCs. However even in the unsedated state patient had very infrequent PVCs 2. At least 3 different PVC morphologies were noted. For each PVC morphology there were subtle variations in the QRS pattern. Therefore mapping of PVCs was not performed on account of the infrequency of PVCs but more importantly the ch anging morphology of the PVCs, hence pace mapping was not attempted 3. Sustained monomorphic VT was induced on high-dose Isopril with ventricular extra stimulation from the septum with single extrastimuli. However these episodes were nonsustained and could not be induced reliably and consistently. Hence mapping took a considerable amount of time 4. This VT focus had an RS pattern morphology in lead I with very broad R wave. QR pattern in lead V1, delta wave like configuration and the rest of the precordial leads and in the inferior leads upright This was mapped to the right coronary cusp very close to the junction between the cusp and the LVOT 5. A very tortuous and unfurled aorta and the aortic root-LVOT relationship was such that the Penta ray catheter was difficult to manipulate around the LVOT and in the cusp. More so, manipulation of the ablation catheter was even more difficult on account of this unusual anatomic relationship between the aortic root and the LVOT. A long sheath was placed which assisted in mapping. Fortunately, the catheter would repeatedly go into the LVOT/RCC area, in the region of the earliest activation. Pace mapping was then performed and the more than 95 to 97% concordant pace map was obtained RF ablation was performed. This VT morphology had a completely different QRS morphology as compared to the other 3-4 PVC morphologies During the EP study atrial fibrillation, short-lived, was very easily induced. Patient has a history of atrial fibrillation. Patient also has a history of cardiomyopathy Future plan 1. Consider cardiac MRI given the multiplicity of PVC morphologies and the subtle variations within each PVC morphology nonischemic cardiomyopathy 2. Prolonged Holter monitoring rather than event monitoring to document the A- fib burden and PVC burden 3. Clarification of etiology of nonischemic cardiomyopathy depending upon the relative burden of Discharge Diagnosis S/P VT ablation Frequent PVCs Nonsustained VT Mild nonischemic cardiomyopathy Mild nonobstructive CAD History of paroxysmal atrial fibrillation Nurse practitioner note has been reviewed by physician. Signing provider agrees with the documented findings, assessment, and plan of care documented by ROOF [employer]OLTER OPERATOR as a scribe. Plan - Discharge Summary Discharge Rx Participant: No New Discharge Prescriptions: New Aspirin 81 mg PO DAILY #30 tab Continue Calcium Carbonate [Calcium] 600 mg PO QAM Cholecalciferol [Vitamin D3 (25 Mcg = 1000 Iu)] 25 mcg PO QAM Atorvastatin [Lipitor] 40 mg PO QAM Apixaban [Eliquis] 5 mg PO BID Spironolactone [Aldactone] 25 mg PO DAILY Discharge Medication List Calcium Carbonate [Calcium] 600 mg PO QAM 09/02/23 [History] Cholecalciferol [Vitamin D3 (25 Mcg = 1000 Iu)] 25 mcg PO QAM 09/02/23 [History] Apixaban [Eliquis] 5 mg PO BID 11/28/23 [History] Atorvastatin [Lipitor] 40 mg PO QAM 11/28/23 [History] Spironolactone [Aldactone] 25 mg PO DAILY 03/06/24 [History] Aspirin 81 mg PO DAILY #30 tab 03/13/24 [Rx] Follow up Appointment(s)/Referral(s): Basilio Farris MD [STAFF PHYSICIAN] - 03/27/24 3:45 pm Patient Instructions/Handouts: Cardiac Ablation (DC) Activity/Diet/Wound Care/Special Instructions: Resume Eliquis tonight Take aspirin for 1 month only then stop
[2024-03-13] MEDS ORDERED: APIXABAN 5 MG TAB PO SCH (21:00)
== END 2024-03-13 12:22 | disposition home or self-care (01) ==
LOC: CATHEP 11:55 → 6NMEDSUR 18:42 → CATHEP 03-13 12:22
PROVIDERS: ATTEND Internal Medicine Clinical Cardiac Electrophysiology
DX: I47.20 Ventricular tachycardia, unspecified
CPT/HCPCS: 80053; 84443; 86850; 86900; 86901; 93623; 93654; 93662

== ENCOUNTER → 2024-09-17 | Outpatient (CLI) | payer MEDICARE ==
[2024-09-17 14:52] LABS: HCT 47.5 % (39.6-50.0); HGB 15.3 g/dL (13.0-17.0); MCH 29.8 pg (27.0-32.0); MCHC 32.2 g/dL (32.0-37.0); MCV 92.4 FL (80.0-97.0); Mean Platelet Volume 10.1 FL (9.5-12.2); NRBC Per 100 WBC 0 X 10*3/uL (0.00-0.01); Platelet Count 241 X 10*3/uL (140-440); RBC 5.14 X 10*6/uL (4.40-5.60); RDW 13.3 % (11.5-14.5); WBC 10.82 X 10*3/uL (4.50-10.00)
[2024-09-17 15:09] LABS: ALT 26 U/L (10-49); AST 27 U/L (14-35); Albumin 4.2 g/dL (3.8-4.9); Albumin/Globulin Ratio 1.62 Ratio (1.60-3.17); Alkaline Phosphatase 72 U/L (41-126); BUN/Creat Ratio 20.11 Ratio (12.00-20.00); Blood Urea Nitrogen 18.1 mg/dL (9.0-27.0); Calcium 9.8 mg/dL (8.7-10.3); Carbon Dioxide 27.4 mmol/L (21.6-31.8); Chloride 104 mmol/L (96-109); Globulin 2.6 g/dL (1.6-3.3); Glucose 73 mg/dL (70-110); Potassium 4.7 mmol/L (3.5-5.5); Sodium 142 mmol/L (135-145); Total Bilirubin 0.7 mg/dL (0.3-1.2); Total Protein 6.8 g/dL (6.2-8.2)
[2024-09-17 21:34] LABS: NT-Pro-B-Type Natriuretic Pept 208 pg/mL (0-450)
== END | disposition home or self-care (01) ==
LOC: LABWHC1 11:41
PROVIDERS: ATTEND Internal Medicine Interventional Cardiology
DX: I25.5 Ischemic cardiomyopathy (principal); I48.3 Typical atrial flutter
CPT/HCPCS: 36415; 80053; 83880; 84443; 85027